=== PATIENT | female | born 1940 | race Caucasian/White ===

== ENCOUNTER → 2016-07-24 | Outpatient (CLI) | payer OTHER | LOC: FIMAGING 07:42 | PROVIDERS: ATTEND Physical Medicine & Rehabilitation Pain Medicine | DX: S32.10XD Unspecified fracture of sacrum, subsequent encounter for fracture with routine healing (principal); R60.9 Edema, unspecified; M51.36 Other intervertebral disc degeneration, lumbar region; M99.73 Connective tissue and disc stenosis of intervertebral foramina of lumbar region; M51.26 Other intervertebral disc displacement, lumbar region ==

== ENCOUNTER → 2016-10-06 | Outpatient (CLI) | payer OTHER | LOC: FIMAGING 09:09 | PROVIDERS: ATTEND Orthopaedic Surgery Orthopaedic Surgery of the Spine | DX: M51.36 Other intervertebral disc degeneration, lumbar region (principal); M43.16 Spondylolisthesis, lumbar region; M43.17 Spondylolisthesis, lumbosacral region ==

== ENCOUNTER 2016-10-13 09:01 | Observation (INO) | payer OTHER ==
--- NOTE | 2016-10-12 17:27 | GHP ---
[f rep st] PREOP HISTORY AND PHYSICAL DATE OF ADMISSION: 10/13/2016 HISTORY: The patient is a pleasant 76-year-old woman who underwent in 2005 an L3-L4-L5 laminectomy by myself with good results and full resolution of her symptoms. Now she is presenting with a 1 yea r history of severe left buttock pain radiating to the lateral thigh and lateral leg. 80% of her sy mptoms are referable to the left lower extremity. 20% is referable to low back pain. She also has paresthesias in the left foot. Symptoms are worse with ambulation and better with sitting. She den ies any loss of bowel or bladder control. On a visual analog scale of 1-10, her daily pain is an 8. The patient has tried epidural steroid injections, physical therapy, massage therapy, acupuncture and chiropractics. SOCIAL HISTORY: Negative for tobacco. Positive for occasional alcohol. She is a retired teacher. FAMILY HISTORY: Negative. PAST HISTORY: Hypercholesterolemia, hypothyroidism, Ralph's disease, osteoporosis and a history o f a perforated colon as well as hypertension. PAST SURGICAL HISTORY: L3 to L5 laminectomy. Two left ankle surgeries for fractures, left total kn ee arthroplasty, colon resection with ostomy and reconnection later. ALLERGIES TO MEDICATIONS: None. MEDICATIONS: Triamterene, hydrochlorothiazide, thyroxine, fenofibrate, hydrocortisone, fludrocortis one and omeprazole. REVIEW OF SYSTEMS: A 10-point review is negative for any pertinent positives. PHYSICAL EXAM: VITAL SIGNS: The patient is 5 feet 5 inches tall and weighs 135 pounds. Blood pres sure is 132/68. GENERAL: The patient is alert and oriented x3. CARDIAC: Regular rate and rhythm without detectable murmur, rub, or gallop. LUNGS: Clear to auscultation. NEUROLOGIC: Shows her g ait to be antalgic favoring the left lower extremity. Strength of bilateral lower extremities is 5/ 5 throughout except the left EHL which is 2/5. Light touch is diminished in the 1st through 5th toe s on the left. Achilles reflexes are absent bilaterally. All others are 1/4. Straight leg raising is negative x2. Lumbar spine shows a well-healed midline scar. It is nontender. She has good ran ge of motion of the lumbar spine. She is tender in the left sciatic notch. Toes are downgoing on B abinski exam, and she has no clonus bilaterally. RADIOGRAPHIC STUDIES: The patient has had a sacral plasty on the right at L5-S1. This was for stre ss fractures. She does have some methylmethacrylate extravasation on the right at L5-S1. She has a stable old compression fracture at L1, L2, L3. There is severe multilevel degenerative disk diseas e. She has moderate central stenosis L5-S1 and severe left L5-S1 foraminal stenosis. She also has asymptomatic L2-3 and L1-2 stenosis. IMPRESSION: 1. Left L5 radiculopathy with motor weakness. 2. Eleven years status post L3 to L5 laminectomy by myself. 3. Moderate central stenosis L5-S1 and severe foraminal stenosis L5-S1 left. PLAN: The patient will undergo an L5-S1 laminectomy with left-sided foraminotomy for stenosis. Pot ential risks, benefits, possible complications have been thoroughly discussed including but not limi lawrence to, dural tear with CSF leak, meningitis, nerve root injury, partial or complete paralysis, infe ction, need for further surgery, DVT, PE, pneumonia, stroke, heart attack, hemorrhage, blindness, an d . The patient's questions were answered thoroughly. She will be n.p.o. after midnight ayan gaffney. Copy requested to: Presurgery testing /[id number]/MODL
[~2016-10-13 09:01] MED LIST: BACITRACIN 50,000 UNITS/10 ML SYR IRR ONE; BUPIVACAINE 0.25% 30 ML SDV ONE; GENTAMICIN 80 MG/NACL 100 ML IV ONE; THROMBIN (BOVINE) 20,000 UNIT VIAL TP ONE; ceFAZolin 2 GM/DEXTROSE 100 ML IV ONE; methylPREDNISolone SOD SUCC 125 MG/2 ML VIAL ONE
[2016-10-13] MEDS ORDERED: LIDOCAINE 1% 5 ML SDV ONE (09:43)
[2016-10-13] MEDS ORDERED: CEFAZOLIN 2 GM/DEXTROSE/100 ML BAG IV ONE (10:49)
[2016-10-13] MEDS ORDERED: MIDAZOLAM 2 MG/2 ML VIAL ONE (11:12)
[2016-10-13] MEDS ORDERED: PROPOFOL/EMULSION 500 MG/50 ML BOTTLE IV ONE (11:15)
[2016-10-13] MEDS ORDERED: fentaNYL 100 MCG/2 ML INJ ONE ×4 (11:16→15:30)
[2016-10-13] MEDS ORDERED: BACITRACIN 50,000 UNITS/10 ML SYR IRR ONE (13:05)
[2016-10-13] MEDS ORDERED: BISACODYL 10 MG SUPP PR PRN (14:14)
[2016-10-13] MEDS ORDERED: LACTULOSE 20 GM/30 ML UDCUP PO PRN (14:14)
[2016-10-13] MEDS ORDERED: ONDANSETRON DISINTEGRATING 4 MG TAB PO PRN (14:14)
[2016-10-13] MEDS ORDERED: HYDROmorphONE/DILAUDID 1 MG/ML SYR IVP PRN (14:14)
[2016-10-13] MEDS ORDERED: MAGNESIUM HYDROXIDE 30 ML UDCUP PO PRN (14:14)
[2016-10-13] MEDS ORDERED: POLYETHYLENE GLYCOL 3350 17 GM PKT PO PRN (14:14)
[2016-10-13] MEDS ORDERED: DIAZEPAM 5 MG TAB PO PRN (14:14)
[2016-10-13] MEDS ORDERED: DIAZEPAM 10 MG/2 ML SYR IVP PRN (14:14)
[2016-10-13] MEDS ORDERED: ACETAMINOPHEN 325 MG TAB PO PRN (14:14)
[2016-10-13] MEDS ORDERED: diphenhydrAMINE 25 MG CAP PO PRN (14:14)
[2016-10-13] MEDS ORDERED: HYDROCODONE/APAP 10/325 TAB PO PRN (14:14)
[2016-10-13] MEDS ORDERED: ONDANSETRON 4 MG/2 ML VIAL IVP PRN (14:14)
--- NOTE | 2016-10-13 14:14 | POSTOPPROG ---
Post Op Note Date of Operation: 10/13/16 Surgeon: Jaja Glass Trouble Tracer: Choco Carr SA Anesthesiologist: Rachana Cantrell MD Anesthesia: GET(General Endotracheal) Pre-op Diagnosis: stenosis L5-S1 Post-op Diagnosis: same Indication: Bilat lower extremity pain Procedure: Rev. L5-S1 lami, Bilat L5-S1 kathya, R S1-2 kathya Findings: sev. Neuroforaminal stenosis Inf/Abcess present in the surg proc area at time of surgery?: No Depth: Deep Incisional (Fascial) EBL: 50 Cc Complications: None. No changes in neuromonitoring.
[2016-10-13] MEDS ORDERED: D5W 1/2 NS W/ 20 KCl/L 1,000 ML IV SCH (14:15)
[2016-10-13] MEDS ORDERED: ONDANSETRON 4 MG/2 ML VIAL ONE (14:26)
[2016-10-13] MEDS ORDERED: HYDROmorphONE/DILAUDID 1 MG/ML SYR ONE (14:50)
[2016-10-13] MEDS: OXYCODONE/APAP 5/325 TAB PO PRN ×2 (19:39→21:43)
[2016-10-13] MEDS: HYDROCORTISONE 10 MG TAB PO SCH (21:42)
[2016-10-13] MEDS: SENNOSIDES/DOCUSATE SODIUM TAB PO SCH (21:42)
[2016-10-14] MEDS: OXYCODONE/APAP 5/325 TAB PO PRN ×5 (02:16→15:48)
[2016-10-14] MEDS ORDERED: LEVOTHYROXINE 100 MCG TAB PO SCH (06:00)
[2016-10-14] MEDS: SENNOSIDES/DOCUSATE SODIUM TAB PO SCH (08:31)
[2016-10-14] MEDS: HYDROCORTISONE 10 MG TAB PO SCH (08:32)
[2016-10-14] MEDS: FLUCONAZOLE 100 MG TAB PO SCH ×2 (08:33→08:38)
[2016-10-14] MEDS ORDERED: PANTOPRAZOLE SODIUM 40 MG TAB PO SCH (09:00)
[2016-10-14] MEDS ORDERED: FLUDROCORTISONE ACETATE 0.1 MG TAB PO SCH (09:00)
[2016-10-14] MEDS ORDERED: FENOFIBRATE 48 MG TAB PO SCH (09:00)
[2016-10-14] MEDS ORDERED: TRIAMTERENE/HCTZ 37.5/25 1 EACH CAP PO SCH (09:00)
--- NOTE | 2016-10-14 17:02 | SOAPPROG ---
SOAP Progress Note Assessment/Plan: Assessment: post op day 1, s/p Rev L5-S1 lami, Bilat L5-S1 kathya, and R S1-2 kathya. Pt doing well and wants to go home. Plan: 10/14/16 17:00 D/C to home. Will need home O.T. and P.T. Subjective: Pt states bilat leg pain is gone. Objective: Vital Signs Temp Pulse Resp BP Pulse Ox 37.3 C 88 14 145/68 H 93 10/14/16 12:41 10/14/16 12:41 10/14/16 12:41 10/14/16 12:41 10/14/16 12:41 10/13/16 10/14/16 10/15/16 05:59 05:59 05:59 Intake Total 3320 Output Total 605 Balance 2715 BLE motor 5/5 except left EHL 0/5 (old injury). Debra's negative x 2. Dressing changed by RN ICD10 Worksheet Patient Problems: Problems Problem Status Onset Colitis, acute Acute Perforated abdominal viscus Acute Peritonitis Acute Severe sepsis Acute
[2016-10-14 17:08] VITALS: BP 149/63; PULSE 94; RESP 16; TEMP 98.8; O2SAT 91
--- NOTE | 2016-10-14 17:09 | PDIAF ---
- Diagnosis Code Status: Full Code - Medication Management Discharge Medications: Medications to Continue on Transfer Cholecalciferol Vit D3 [Vitamin D3 (*)] 1,000 units PO DAILY@18 08/06/15 [Last Taken 1 Week Ago] Fenofibrate [Tricor] 96 mg PO DAILY 08/06/15 [Last Taken 10/12/16 08:00] Fludrocortisone Acetate [Florinef] 0.1 mg PO DAILY 08/06/15 [Last Taken 1 Week Ago] Hydrocortisone [Cortef 10 mg (*)] 10 mg PO BID 08/06/15 [Last Taken 10/12/16 20: 00] Levothyroxine [Synthroid 100 mcg (*)] 100 mcg PO DAILY06 08/06/15 [Last Taken 08:00] Triamterene/Hydrochlorothiazid [Triamterene-Hctz 37.5-25 mg Cp] 1 each PO DAILY 08/06/15 [Last Taken 10/12/16 08:00] Omeprazole [Prilosec 20 mg] 20 mg PO DAILY 01/15/16 [Last Taken 10/12/16 08:00] Fluconazole [Diflucan (*)] 200 mg PO DAILY 09/29/16 [Last Taken 10/12/16 08:00] Diazepam [Valium 5 MG (*)] 5 mg PO Q8 PRN #30 tab 10/14/16 [Last Taken Unknown] Fenofibrate [Tricor] 96 mg PO DAILY #0 tab 10/14/16 [Last Taken Unknown] Fluconazole [Diflucan (*)] 200 mg PO DAILY #0 tab 10/14/16 [Last Taken Unknown] Fludrocortisone Acetate [Florinef] 0.1 mg PO DAILY #0 tab 10/14/16 [Last Taken Unknown] Hydrocortisone [Cortef 10 mg (*)] 10 mg PO BID #0 tab 10/14/16 [Last Taken Unknown] Levothyroxine [Synthroid 100 mcg (*)] 100 mcg PO DAILY06 #0 tab 10/14/16 [Last Taken Unknown] Pantoprazole Sodium [Protonix 40mg (*)] 40 mg PO DAILY #0 tab 10/14/16 [Last Taken Unknown] oxyCODONE/APAP 5/325 [Percocet 5/325 (*)] 1 - 2 tab PO Q4HRS PRN #30 tab [Last Taken Unknown] Discharge Medications: Refer to the Discharge Home Medication list for PRN reason. PICC Care - Routine: N/A - Orders Services needed: Physical Therapy, Occupational Therapy Diet Recommendation: no restrictions on diet Diet Texture: Regular Texture Diet Carl Stockings Discontinue Date: 3-4 days Activity/Weight Bearing Restrictions: No bending, lifting, twisting. Pt to wear back brace at all times except for showers. - Follow Up Care Current Providers and Referrals: Rosalind Aviles MD [Primary Care Provider] -
--- NOTE | 2016-10-14 21:24 | GDS ---
[f rep st] DISCHARGE SUMMARY HOSPITAL COURSE: This is a pleasant 76-year-old woman well known to my practice. Eleven years ago she underwent an L3-L5 laminectomy by myself with good results. However, over the last year, she carver s developed increasing severe left lower extremity pain and more recently right lower extremity pain . She was admitted to the hospital and underwent a general anesthetic. Also intraoperative neural monitoring was performed. She underwent an L5-S1 revision laminectomy, bilateral L5-S1 foraminotomy , and right S1-S2 laminal foraminotomy. There were no complications intraoperatively. Postoperatively, patient states that her bilateral lower extremity pain was markedly improved. Her only complaint was back pain in the incision area. She was on IV antibiotics. Postoperatively, she had no issues with nausea or vomiting, but did have some reflex, which is typical for her. Patient was seen in PT and OT, and was recommended to have a home health consultation and visits. Patient is being discharged to home in satisfactory condition. She has postoperative prescriptions for Percocet, Valium, and Keflex. She also has a postoperative appointment already scheduled in my office. She understands she needs to not do any bending, lifting, twisting. She also needs to have a daily dry dressing change, which her feels comfortable doing. Overall, she has done exce edingly well and will follow up with me in 2 weeks. /[id number]/MODL
== END 2016-10-14 17:50 | disposition home health service (06) ==
LOC: INTOOBSV 09:01 → F3N 09:01
PROVIDERS: ADMIT Orthopaedic Surgery Orthopaedic Surgery of the Spine; ATTEND Orthopaedic Surgery Orthopaedic Surgery of the Spine
PROC: 0SB30ZZ Excision of Lumbosacral Joint, Open Approach (ICD-10-PCS; principal; 2016-10-13 11:15)
PROC: 00NY0ZZ Release Lumbar Spinal Cord, Open Approach (ICD-10-PCS; principal; 2016-10-13 11:15)
DX: M48.07 Spinal stenosis, lumbosacral region (principal); M54.42 Lumbago with sciatica, left side; M54.16 Radiculopathy, lumbar region; E03.9 Hypothyroidism, unspecified; E78.5 Hyperlipidemia, unspecified; M81.0 Age-related osteoporosis without current pathological fracture; I10 Essential (primary) hypertension; E27.1 Primary adrenocortical insufficiency; Z96.652 Presence of left artificial knee joint
CPT/HCPCS: 63047; 76001; 97116; 97161; 97166; G8978; G8979; G8987; G8988; J0690; J1170; J1580; J2250; J2405; J2704; J3010

== ENCOUNTER 2016-11-04 13:21 | Inpatient (IN) | payer OTHER ==
--- NOTE | 2016-11-04 13:25 | GHP ---
[f rep st] PREOP HISTORY AND PHYSICAL HISTORY OF PRESENT ILLNESS: The patient is a pleasant 76-year-old woman, who is now 3 weeks status post a revision L5-S1 laminectomy, bilateral L5-S1 foraminotomies, right S1-S2 foraminotomy for stenosis. Eleven years ago, she had undergone an L3-L5 laminectomy by myself with good results. This most recent surgery went well, and she was discharged to home a couple of days postoperatively. She called yesterday to my office stating she was having increased leg pain, and therefore, she was brought in today to reevaluate her. She does mention she has had chills for the last 48 hours. She has had some loss of appetite also. No emesis and no diarrhea. She feels that her left lower extremity pain is 30% better than before surgery, but she still has left buttock and thigh pain, but not below the knee. Upon exam in my office today, she has an obvious subcutaneous purulence of the proximal aspect of her lumbar wound and will require an incision irrigation and debridement. She has been n.p.o. since 9 a.m. The patient denies any loss of bowel or bladder control. FAMILY HISTORY: Negative. SOCIAL HISTORY: Negative for tobacco, and positive for social use of alcohol. She is a retired teacher. PAST MEDICAL HISTORY: Gastroesophageal reflux disease, osteoporosis, hypercholesterolemia, Ralph's disease, and hypothyroidism. PAST SURGICAL HISTORY: Significant for a perforated colon surgery and then reattachment, L3-L5 laminectomy 11 years ago, and then the recent revision L5- S1 laminectomy, bilateral L5-S1 foraminotomies, and right S1-S2 foraminotomies. She has also had 2 left ankle surgeries for fractures, and a left total knee arthroplasty. ALLERGIES: To medications: None. MEDICATIONS: Triamterene/hydrochlorothiazide, Percocet, thyroxine, fenofibrate , hydrocortisone 10 mg b.i.d., fludrocortisone 1 tablet per day, Valium 5 mg 1 p.o. q.h.s. p.r.n., omeprazole and naproxen. PHYSICAL EXAM: GENERAL: The patient is a well developed, well nourished, very pleasant woman to interact with. VITAL SIGNS: Temperature is 96.6 degrees. CARDIAC: Reveals regular rate and rhythm without detectable murmur, rub or gallop. LUNGS: Clear to auscultation. ABDOMEN: Benign, with good bowel sounds throughout. NEUROLOGIC: Shows strength of bilateral lower extremities to be 5/5 throughout. Light touch is intact. Her lumbar wound has some mild peripheral erythema. There is about a 2-3 mm opening at the proximal end of the lumbar wound, with obvious gross purulence, measuring about 20 cc, and it is tender to palpation. IMPRESSION: 1. Three weeks status post revision L5-S1 laminectomy, bilateral L5-S1 foraminotomies, right S1-S2 foraminotomy. 2. Postoperative lumbar wound infection. PLAN: I explained to the patient the findings, and that she clearly has an infection. Her [place]'s disease and chronic steroid use, in addition to revision surgery are her risk factors for the infection. We will order blood cultures, have her be n.p.o., order labs including CBC and sedimentation rate, C -reactive protein, and then have infectious disease consultants see the patient tomorrow. She will be brought to the operating room today for an incision irrigation and debridement. Potential risks, benefits, possible complications have been thoroughly discussed with the patient, including, but not limited to dural tear with CSF leak, meningitis, nerve root injury, partial or complete paralysis, infection, need for further surgery, DVT, PE, pneumonia, stroke, heart attack, hemorrhage, blindness, and . /[id number]/MODL MTDD
[2016-11-04] MEDS ORDERED: BACITRACIN 50,000 UNITS/10 ML SYR IRR ONE (13:46)
[2016-11-04] MEDS ORDERED: POLYMYXIN B SULFATE 500,000 UNIT/10 ML SYR IRR ONE (13:46)
[2016-11-04] MEDS ORDERED: BUPIVACAINE 0.25% 30 ML SDV ONE (13:46)
[2016-11-04] MEDS ORDERED: THROMBIN (BOVINE) 20,000 UNIT VIAL TP ONE (13:46)
[2016-11-04] MEDS ORDERED: LR 1,000 ML IV ONE (15:36)
[2016-11-04] MEDS ORDERED: LIDOCAINE 1% 5 ML SDV ID PRN (15:36)
[2016-11-04 15:54] LABS: % IMMATURE GRANULYOCYTES 0.6 % (0.0-1.1); ABSOLUTE IMMATURE GRANULOCYTES 0.11 10^3/uL (0.00-0.10); ABSOLUTE NRBC COUNT 0.02 10^3/uL (0-0.01); ADD DIFF? NO; ADD MORPH? NO; ADD SCAN? NO; ATYPICAL LYMPHOCYTE FLAG 0 (0-99); FRAGMENT RBC FLAG 0 (0-99); HEMATOCRIT 33.1 % (38.0-47.0); HEMOGLOBIN 11.1 g/dL (12.6-16.3); LEFT SHIFT FLG 20 (0-99); LIPEMIA HEMOLYSIS FLAG 80 (0-99); MEAN CELL HEMOGLOBIN 29.4 pg (27.9-34.1); MEAN CELL HEMOGLOBIN CONCENTR. 33.5 g/dL (32.4-36.7); MEAN CELL VOLUME 87.6 fL (81.5-99.8); MEAN PLATELET VOLUME 11.3 fL (8.7-11.7); NRBC-AUTO% 0.1 % (0.0-0.2); PLATELET CLUMPS FLAG 20 (0-99); PLATELET COUNT 236 10^3/uL (150-400); RED BLOOD CELL COUNT 3.78 10^6/uL (4.18-5.33); RED CELL DISTRIBUTION WIDTH 13.3 % (11.5-15.2)
[2016-11-04] MEDS ORDERED: BISACODYL 10 MG SUPP PR PRN (15:56)
[2016-11-04] MEDS ORDERED: MAGNESIUM HYDROXIDE 30 ML UDCUP PO PRN (15:56)
[2016-11-04] MEDS ORDERED: LACTULOSE 20 GM/30 ML UDCUP PO PRN (15:56)
[2016-11-04] MEDS ORDERED: ACETAMINOPHEN 325 MG TAB PO PRN (16:00)
--- NOTE | 2016-11-04 16:04 | PDANEPAE ---
ANE History of Present Illness l5 infection s/p lami ANE Past Medical History - Cardiovascular History Hx Hypertension: Yes Hx Arrhythmias: No Hx Chest Pain: No Hx Coronary Artery / Peripheral Vascular Disease: No Hx CHF / Valvular Disease: No Hx Palpitations: No - Pulmonary History Hx COPD: No Hx Asthma/Reactive Airway Disease: No Hx Recent Upper Respiratory Infection: No Hx Oxygen in Use at Home: No - Neurologic History Hx Cerebrovascular Accident: No Hx Seizures: No Hx Dementia: No - Endocrine History Hx Diabetes: No - Renal History Hx Renal Disorders: No - Liver History Hx Hepatic Disorders: No - Neurological & Psychiatric Hx Hx Neurological and Psychiatric Disorders: No - Cancer History Hx Cancer: No - Congenital Disorder History Hx Congenital Disorders: No - GI History Hx Gastrointestinal Disorders: Yes - Chronic Pain History Chronic Pain: Yes ANE Review of Systems - Exercise capacity Exercise capacity: >=4 METS - Systems Constitutional: Reports: no symptoms Cardiac: Reports: no symptoms Respiratory: Reports: no symptoms Neurological: Reports: no symptoms ANE Patient History - Allergies Allergies/Adverse Reactions: No Known Allergies Allergy (Verified 10/14/16 02:18) - Home Medications Home Medications: Acetaminophen [Tylenol 325mg (*)] 325 mg PO BID PRN 11/04/16 [Last Taken ] Diazepam [Valium 5 MG (*)] 5 mg PO Q8H PRN 11/04/16 [Last Taken 11/03/16] Fenofibrate [Tricor 48 MG (RX)] 96 mg PO DAILY 11/04/16 [Last Taken 11/04/16] Fludrocortisone Acetate [Florinef 0.1 MG (RX)] 0.1 mg PO DAILY 11/04/16 [Last Taken Unknown] Herbals/Supplements -Info Only 1 ea PO DAILY 11/04/16 [Last Taken 11/03/16] Hydrocortisone [Cortef 10 mg (*)] 10 mg PO BID 11/04/16 [Last Taken 11/04/16 1 tab] Levothyroxine [Synthroid 100 mcg (*)] 100 mcg PO DAILY06 11/04/16 [Last Taken ] Naproxen Sodium [Aleve 220 MG (*)] 220 mg PO BID PRN 11/04/16 [Last Taken ] Omeprazole 20 mg PO DAILY 11/04/16 [Last Taken 11/04/16] Triamterene/Hydrochlorothiazid [Triamterene-Hctz 37.5-25 mg Tb] 1 each PO DAILY 11/04/16 [Last Taken 11/04/16] oxyCODONE/APAP 5/325 [Percocet 5/325 (*)] 1 - 2 tab PO Q46H 11/04/16 [Last Taken 11/04/16] - NPO status NPO Since - Liquids (Date): 11/04/16 NPO Since - Liquids (Time): 09:00 NPO Since - Solids (Date): 11/04/16 NPO Since - Solids (Time): 09:00 - Smoking Hx Smoking Status: Never smoked - Family Anes Hx Family Hx Anesthesia Complications: none ANE Labs/Vital Signs - Labs Result Diagrams: 11/04/16 15:45 11/04/16 15:45 - Vital Signs Blood Pressure: 125/59 Heart Rate: 78 Respiratory Rate: 15 O2 Sat (%): 99 Height: 167.64 cm Weight: 62.142 kg ANE Physical Exam - Airway Mallampati Score: Class 2 Mouth exam: normal dental/mouth exam - Pulmonary Pulmonary: no respiratory distress - Cardiovascular Cardiovascular: regular rate and rhythym - ASA Status ASA Status: II, E
[2016-11-04] MEDS ORDERED: fentaNYL 100 MCG/2 ML INJ ONE ×3 (16:18→17:51)
[2016-11-04] MEDS ORDERED: ROCURONIUM 50 MG/5 ML VIAL ONE (16:18)
[2016-11-04] MEDS ORDERED: PROPOFOL 200 MG/20 ML VIAL ONE (16:18)
[2016-11-04] MEDS ORDERED: LIDOCAINE 2% 5 ML SDV ONE (16:18)
[2016-11-04 16:20] LABS: ANION GAP 11 mEq/L (8-16); CALCIUM 9.5 mg/dL (8.5-10.4); CARBON DIOXIDE 19 mEq/l (22-31); CHLORIDE 103 mEq/L (97-110); GLOMERULAR FILTRATION RATE 54; GLUCOSE 92 mg/dL (70-100); POTASSIUM 4.4 mEq/L (3.5-5.2); SODIUM 133 mEq/L (134-144)
[2016-11-04 16:22] LABS: SEDIMENTATION RATE 65 MM/HR (0-30)
[2016-11-04] MEDS ORDERED: HYDROCORTISONE 100 MG/2 ML VIAL IVP ONE (16:35)
[2016-11-04 16:39] LABS: C-REACTIVE PROTEIN 198.5 mg/L (<10.0)
[2016-11-04] MEDS ORDERED: HYDROCORTISONE 100 MG/2 ML VIAL ONE (16:39)
[2016-11-04] MEDS ORDERED: ceFAZolin 1 GM VIAL ONE ×2 (16:40)
[2016-11-04] MEDS ORDERED: ONDANSETRON 4 MG/2 ML VIAL IVP PRN (16:57)
[2016-11-04] MEDS ORDERED: ALBUTEROL 3 ML DEYVIAL IH PRN (16:57)
[2016-11-04] MEDS ORDERED: NALOXONE HCL 0.4 MG/ML INJ IVP PRN (16:57)
[2016-11-04] MEDS ORDERED: ONDANSETRON 4 MG/2 ML VIAL ONE (17:10)
[2016-11-04] MEDS ORDERED: SUGAMMADEX SODIUM 200 MG/2 ML VIAL IVP ONE (17:11)
--- NOTE | 2016-11-04 17:43 | POSTOPPROG ---
Post Op Note Date of Operation: 11/04/16 Surgeon: Jaja Glass Chemical Applicator: Choco Carr SA Anesthesiologist: MD Sergei Anesthesia: GET(General Endotracheal) Pre-op Diagnosis: lumbar wound infection s/p rev. lami Post-op Diagnosis: same Indication: purulence, chills Procedure: Lumbar wound I and D, drain placement Findings: 20 CC purulence superficial and deep. Inf/Abcess present in the surg proc area at time of surgery?: Yes Depth: Deep Incisional (Fascial) EBL: 50 cc Complications: None. Drains: Jayant Vo
--- NOTE | 2016-11-04 17:45 | POSTANESTH ---
Post Anesthetic Evaluation Cardiovascular Status: Normal, Stable Respiratory Status: Normal, Stable Level of Consciousness/Mental Status: Can Participate in Eval Pain Control: Adequate, Prn Tx Ordered Nausea/Vomiting Control: Adequate, Prn Tx Ordered Complications Possibly Related to Anesthesia: None Noted
[2016-11-04] MEDS: fentaNYL 100 MCG/2 ML INJ IVP PRN ×2 (17:53→17:57)
[2016-11-04] MEDS ORDERED: HYDROmorphONE/DILAUDID 2 MG/ML INJ ONE (18:09)
[2016-11-04] MEDS: HYDROmorphONE/DILAUDID 1 MG/ML SYR IVP PRN ×3 (18:12→18:36)
[2016-11-04] MEDS: D5W 1/2 NS 1,000 ML IV SCH (20:32)
[2016-11-04] MEDS: HYDROCORTISONE 10 MG TAB PO SCH (20:33)
[2016-11-04] MEDS: morphINE SR 15 MG TAB PO SCH (20:33)
[2016-11-04] MEDS: SENNOSIDES/DOCUSATE SODIUM TAB PO SCH (20:33)
[2016-11-04] MEDS: DIAZEPAM 5 MG TAB PO PRN (21:58)
[2016-11-04] MEDS: OXYCODONE/APAP 5/325 TAB PO PRN (21:58)
[2016-11-05] MEDS: OXYCODONE/APAP 5/325 TAB PO PRN ×3 (02:34→16:12)
[2016-11-05] MEDS: LEVOTHYROXINE 100 MCG TAB PO SCH (05:34)
--- NOTE | 2016-11-05 06:51 | GOP ---
[f rep st] OPERATIVE REPORT DATE OF OPERATION: 11/04/2016 SURGEON: Jaja Degroot MD SOUND EFFECTS MANAGER: Orlando Carr SA. ANESTHESIA: General endotracheal intubation. ANESTHESIOLOGIST: Dr. Mai. PREOPERATIVE DIAGNOSIS: 1. Three weeks status post revision L5-S1 laminectomy, bilateral L5-S1 foraminotomies, right S1-S2 foraminotomy. 2. Postoperative lumbar wound infection. POSTOPERATIVE DIAGNOSIS: 1. Three weeks status post revision L5-S1 laminectomy, bilateral L5-S1 foraminotomies, right S1-S2 foraminotomy. 2. Postoperative lumbar wound infection. PROCEDURE PERFORMED: Incision, irrigation, debridement lumbar wound infection. FINDINGS: Superficial and deep lumbar wound infection with approximately 20 cc of purulence. No ev idence of epidural abscess and no evidence of bone involvement. It seems as though this infection w as caught quite early in my opinion. A superficial set of cultures, deep lumbar wound cultures and tissue for TB were sent. It should be mentioned patient received 2 g of Ancef after cultures were o btained. ESTIMATED BLOOD LOSS: 50 cc. INDICATIONS: The patient is a pleasant 76-year-old woman well known to my practice. She is 3 weeks status post a revision lumbar decompression L5-S1 on the left and L5-S2 on the right for stenosis. The patient called my office yesterday with concerns of increasing leg pain. She was seen today in the office. She mentioned she has had chills for 48 hours and loss of appetite. On exam, her lumb ar wound showed some purulence from the proximal aspect of the wound and diffuse erythema and tender ness to palpation. Due to the purulence expressed, she was recommended to undergo surgery urgently. She concurred. Potential risks, benefits, possible complications were thoroughly discussed with t he patient including, but not limited to, dural tear with CSF leak, meningitis, nerve root injury, p artial or complete paralysis, lack of improvement in symptomatology, need for further surgery, sepsi s, DVT, PE, pneumonia, stroke, heart attack, hemorrhage, blindness, and . DESCRIPTION OF PROCEDURE: After obtaining both written and verbal consent from the patient, she was brought to the operating room where she underwent general endotracheal intubation. The patient was rolled to the prone position on the [place] table. All 4 extremities were padded well. The face a nd eyes were padded per the anesthesiologist. No x-ray was needed for localization as the lumbar wo und, which was infected, was quite obvious. A timeout was performed with the entire operating room team, confirming patient's name, date of , planned surgical procedure, antibiotics given which were none, and allergies to medications. After a sterile prep and drape, a midline posterior longitudinal incision was made through the previ ous scar which dehisced immediately, and there was purulence upon opening it. This was cultured imm ediately using aerobic and anaerobic cultures sent for the aforementioned, in addition to fungus and a stat Gram stain. The previous sutures were removed from the subcutaneous layer. Cerebellars wer e placed, and the deep fascial layer was opened up. Another, approximate 10 cc of purulence, came d irectly from about the L5 level and deep to the fascial layer. This was cultured as well and sent a s deep lumbar wound cultures. A piece of soft tissue was then removed with maximum and se nt as tissue for TB culturing. The wound was thoroughly explored. It seems as though that the infe ction was quite early and caught it in its early stage as the surrounding tissues did not have much necrosis. The little that was necrosed was removed with a rongeur, and Bovie cautery was used for h emostasis. The previous laminotomy sites were dressed and thoroughly irrigated. Covering the dura, however, 3 L of normal saline mixed with bacitracin and polymyxin was irrigated and pulse lavaged w ithin the wound. The wound then appeared pink and moist throughout. The dura was inspected and in good condition, and there did not seem to be any epidural abscess. Also it did not seem as though t here was any bone involvement. Nonetheless, the infection was both superficial and deep to the fasc ial layer. In total, there was approximately 20 cc of purulence. A 10 flat CHULA drain was placed diamante p to the fascial layer and sewn in with a 2-0 nylon suture. The deep fascial layer was closed in a loose fashion using a #1 Vicryl in an interrupted fashion, followed by a 2-0 Vicryl in subcutaneous layer and 2-0 nylon in the skin layer. A sterile dressing was applied. The patient was then rolled to the supine position. She was extubated in the operating room and brought to the recovery room i n satisfactory condition. COMPLICATIONS: None. POSTOPERATIVE PLAN: Close neurologic observation, close airway observation, PT/OT, pain control and Infectious Disease consultation. I will keep her on IV Ancef until Infectious Disease consultants have seen the patient and make recommendations with changes. /[id number]/MODL
[2016-11-05] MEDS: TRIAMTERENE/HCTZ 37.5/25 1 EACH TAB PO SCH (08:22)
[2016-11-05] MEDS: HYDROCORTISONE 10 MG TAB PO SCH ×2 (08:23→20:48)
[2016-11-05] MEDS: SENNOSIDES/DOCUSATE SODIUM TAB PO SCH ×2 (08:23→20:47)
[2016-11-05] MEDS: PANTOPRAZOLE SODIUM 40 MG TAB PO SCH (08:23)
[2016-11-05] MEDS: FENOFIBRATE 48 MG TAB PO SCH (08:23)
[2016-11-05] MEDS: FLUDROCORTISONE ACETATE 0.1 MG TAB PO SCH (08:23)
[2016-11-05] MEDS: morphINE SR 15 MG TAB PO SCH ×2 (08:23→20:48)
[2016-11-05] MEDS ORDERED: ALTEPLASE 2 MG VIAL IVP PRN (11:28)
[2016-11-05] MEDS ORDERED: VANCOMYCIN 750 MG in D5W 150 ML IV SCH (12:00)
--- NOTE | 2016-11-05 15:50 | SOAPPROG ---
SOAP Progress Note Assessment/Plan: Assessment: post op day 1 s/p I and D lumbar wound infection. Pt feeling improved today and LLE pain improved. Plan: PT , OT, I.D. consult, awaiting cxs and sensistivities. Awaiting blood cultures also. Will need iv abx and PICC. 11/05/16 15:46 Subjective: Pt states she's feeling better than yesterday. No nausea, vomitting, or chills. Objective: Vital Signs Temp Pulse Resp BP Pulse Ox 36.6 C 78 16 120/56 L 90 L 11/05/16 15:32 11/05/16 15:32 11/05/16 15:32 11/05/16 15:32 11/05/16 15:32 Microbiology 11/04/16 16:52 Gram Stain - Final Back - Eswab 11/04/16 16:56 Mycobacterial Smear (RADHA) - Final Back - Tissue 11/04/16 16:51 Gram Stain - Final Back - Eswab Laboratory Results 11/04/16 15:45 11/04/16 15:45 11/04/16 11/05/16 11/06/16 05:59 05:59 05:59 Intake Total 2383 Output Total 50 Balance 2333 BLE motor 5/5 except Left EHL 0/5(old). Debra's negative x 2. Lumbar wound improved. Drain functioning properly. No purulence. ICD10 Worksheet Patient Problems: Problems Problem Status Onset Colitis, acute Acute Perforated abdominal viscus Acute Peritonitis Acute Severe sepsis Acute
[2016-11-05] MEDS: POLYETHYLENE GLYCOL 3350 17 GM PKT PO PRN ×2 (16:12→20:55)
[2016-11-05 19:13] LABS: BILIRUBIN,TOTAL 0.1 mg/dL (0.1-1.4); BILIRUBIN-UNCONJUGATED 0.1 mg/dL (0.0-1.1); TOTAL PROTEIN 5.4 g/dL (6.3-8.2)
--- NOTE | 2016-11-05 19:29 | GCON ---
[f rep st] CONSULTATION INFECTIOUS DISEASE DATE OF CONSULTATION: 11/05/2016 REFERRING PHYSICIAN: Jaja Degroot MD HPI: This is a 76-year-old woman, well known to me, with past severe intraabdominal infection related to a perforated sigmoid colon, requiring exploratory laparotomy and Aristides procedure in October of 2015, with associated anaerobic bacteremia, and polymicrobial peritonitis, and intraabdominal abscess. The patient received antibiotic therapy through 11/2015, and in the interim has had her Aristides pouch reversed. She has been doing well in her usual state of health, and subsequently underwent an L5-S1 laminectomy with bilateral L5-S1 foraminectomy, and a right-sided S1-S2 foraminotomy on 2016. Postoperatively she was having gradual improvement in her back pain, but on 11/03/2016 the patient developed chills and wound drainage (but no increased back pain), and was subsequently seen by Dr. Degroot on the following day, and was found to have a wound infection. She was taken to the operating room that same day in the evening, and underwent debridement of the wound, and was found to have a deep wound infection down to the fascial layer. Bone and epidural layer were not involved. Cultures were obtained, and Gram stain of the superficial culture showed GPCs on the Gram stain. The patient was subsequently admitted to the hospital and started on cefazolin. This morning she is doing well, but she is somewhat tearful regarding her infection. She denies any fevers today or worsening back pain. PAST MEDICAL HISTORY: Ralph's disease, Clostridium bacteremia, peritonitis as per HPI, hyperlipidemia, hypothyroidism. PAST SURGICAL HISTORY: Colostomy, exploratory laparotomy, sigmoidectomy, and reversal of Aristides pouch, as well as prior back surgeries other than the one listed above. MEDICATIONS: Cefazolin 1 g IV q.8, Tylenol, Valium, Tricor, Florinef, hydrocortisone, lactulose, Protonix, MiraLAX, senna, Maxzide 25. ALLERGIES: NKDA. SOCIAL HISTORY: The patient is . Drinks alcohol occasionally. Never had tobacco. FAMILY HISTORY: Reviewed and noncontributory. REVIEW OF SYSTEMS: A complete 10-point review of systems was performed, and is negative except as mentioned in HPI. PHYSICAL EXAM: VITAL SIGNS: Blood pressure 103/60, heart rate 78, respiratory rate 18, saturation 96% on room air, temperature 36.8. She has been afebrile throughout her hospital course. GENERAL: This is a very pleasant woman lying in bed, in no acute distress. HEENT: Pupils are reactive bilaterally. Oropharynx is moist. No obvious dental caries. NECK: Supple. CARDIOVASCULAR : Regular rate and rhythm with 2/6 systolic murmur. CHEST: Clear to auscultation bilaterally. ABDOMEN: Soft, nontender. Bowel sounds are present. EXTREMITIES: No clubbing, cyanosis, or edema. BACK: Revealed the dressing in place with a CHULA drain with serosanguineous drainage. Wound dressing was not disturbed. NEURO: Lower extremity leg strength was intact. No lower extremity edema. SKIN: Without rashes. LABORATORY: White count 17,000, hematocrit 33, platelets 236, neutrophils 85%, lymphocytes 5%, ESR 65, CRP 198, creatinine 1.0. LFTs are pending. Blood cultures are pending. Microbiology shows Staph aureus, with a negative PBP test consistent with MSSA. ASSESSMENT: 76-year-old woman who underwent lumbar procedure at the end of September , now with postsurgical deep wound infection down to the fascial layer without clear involvement of the bone or epidural layer. Corresponding to this infection includes leukocytosis and an elevated CRP. Initially, when I examined the patient, cultures were not back, and I placed the patient on vancomycin, but was subsequently transitioned back to cefazolin 1 g IV q.8 based on additional laboratory information that isolate is MSSA. Cefazolin 1 g IV Q 8 is likely appropriate dose for deep wound infection in this 76-year-old woman. PLAN: 1. Place PICC line. 2. We will administer either cefazolin 1 g IV Q 8 vs. 3 g IV continuous infusion or ceftriaxone 2 g IV daily once daily, depending on insurance coverage - but suspect ceftriaxone will be most practical. Because of the proximity to the bone and fascial layer, would recommend 4-6 weeks of IV antibiotics to assure clearance of infection. In the past the patient had to go to infusion center due to non-homebound status. In addition, will ask case management to look into out of pocket cost for getting home IV ceftriaxone once daily to allow the patient to travel to a approximately 10 days from now. We will discuss with wrapper caser. 3. We will follow daily labs to assess improvement of white count. 4. Add LFTs onto labs due to likely chronic cephalosporin therapy. Time was 65 minutes, greater than 50% of the time spent with education and counseling regarding IV antibiotics and wound infection, and reassurances that this infection can be cured. Reviewed the risks and benefits of PICC line and IV antibiotic therapy. We will continue to follow on a daily basis. /[id number]/MODL MTDD
[2016-11-05] MEDS: DIAZEPAM 5 MG TAB PO PRN (20:56)
[2016-11-06] MEDS ORDERED: VANCOMYCIN 750 MG in D5W 150 ML IV SCH (02:30)
[2016-11-06] MEDS: PANTOPRAZOLE SODIUM 40 MG TAB PO SCH ×2 (03:30→08:36)
[2016-11-06] MEDS ORDERED: CALCIUM CARBONATE 500 MG CHEWABLE TAB PO PRN (06:26)
[2016-11-06] MEDS: LEVOTHYROXINE 100 MCG TAB PO SCH (06:30)
[2016-11-06] MEDS: D5W 1/2 NS 1,000 ML IV SCH (06:30)
[2016-11-06] MEDS: HYDROCORTISONE 10 MG TAB PO SCH ×2 (08:36→21:24)
[2016-11-06] MEDS: FLUDROCORTISONE ACETATE 0.1 MG TAB PO SCH (08:36)
[2016-11-06] MEDS: FENOFIBRATE 48 MG TAB PO SCH (08:36)
[2016-11-06] MEDS: morphINE SR 15 MG TAB PO SCH ×2 (08:36→21:24)
[2016-11-06] MEDS: SENNOSIDES/DOCUSATE SODIUM TAB PO SCH ×2 (08:36→21:24)
[2016-11-06] MEDS: TRIAMTERENE/HCTZ 37.5/25 1 EACH TAB PO SCH (08:55)
--- NOTE | 2016-11-06 16:09 | SOAPPROG ---
SOAP Progress Note Assessment/Plan: Assessment: post op day 1 s/p I and D lumbar wound infection. Pt feeling improved today and LLE pain improved. Plan: PT , OT, I.D. consult, awaiting cxs and sensistivities. Awaiting blood cultures also. Will need iv abx and PICC. 11/05/16 15:46 11/06/16 16:05 post op day 2, s/p I and D lumbar wound infection. Cxs showing Staph Aureus MSSA. Pt has PICC line. Will d/c pt to home tomorrow if she continues to do well. Subjective: Pt states her leg pain is much better. "not much of an appetite". Objective: Vital Signs Temp Pulse Resp BP Pulse Ox 36.7 C 64 16 115/64 92 11/06/16 11:59 11/06/16 11:59 11/06/16 11:59 11/06/16 11:59 11/06/16 11:59 Microbiology 11/04/16 16:52 Gram Stain - Final Back - Eswab 11/04/16 16:51 Gram Stain - Final Back - Eswab 11/04/16 16:56 Mycobacterial Smear (RADHA) - Final Back - Tissue Laboratory Results 11/04/16 15:45 11/04/16 15:45 11/05/16 11/06/16 11/07/16 05:59 05:59 05:59 Intake Total 2383 800 Output Total 50 30 Balance 2333 770 Lumbar wound with minimal serous drainage. No purulence. Drain removed without difficulty. ICD10 Worksheet Patient Problems: Problems Problem Status Onset Colitis, acute Acute Perforated abdominal viscus Acute Peritonitis Acute Severe sepsis Acute
[2016-11-06] MEDS ORDERED: ALTEPLASE 2 MG VIAL IVP PRN (16:23)
[2016-11-06] MEDS ORDERED: ONDANSETRON 4 MG/2 ML VIAL IVP PRN (16:23)
[2016-11-06] MEDS ORDERED: ACETAMINOPHEN 325 MG TAB PO PRN (16:23)
--- NOTE | 2016-11-06 17:40 | PCMIDPN ---
Assessment/Plan: Assessment: Deep lumbar wound infection secondary to MSSA. Patient is currently on cefazolin. She will be discharged after tomorrow morning's dose. She will continue on daily infusions on with ceftriaxone 1 g daily. Duration is to be 4 weeks from surgery. Plan: 1. Discontinue cefazolin after tonight's doses. 2. Start ceftriaxone 1 g IV Q 24 hours tomorrow morning. 3. Continue ceftriaxone for 25 more doses as an outpatient at [facility] infusion. 11/06/16 17:38 Subjective: Patient is sitting in her chair. She is alert and spirit it. She has no new complaints. Tolerating her cefazolin without complaint. No fevers or chills. Objective: Cefazolin #2 Vital Signs Temp Pulse Resp BP Pulse Ox 36.7 C 65 16 124/75 H 94 11/06/16 16:00 11/06/16 16:00 11/06/16 16:00 11/06/16 16:00 11/06/16 16:00 Microbiology 11/04/16 16:52 Gram Stain - Final Back - Eswab 11/04/16 16:51 Gram Stain - Final Back - Eswab 11/04/16 16:56 Mycobacterial Smear (RADHA) - Final Back - Tissue Laboratory Results 11/04/16 15:45 11/04/16 15:45 11/05/16 11/06/16 11/07/16 05:59 05:59 05:59 Intake Total 2383 800 Output Total 50 30 Balance 2333 770 ESR 65 MM/HR (0-30) H 11/04/16 15:45 C-Reactive Protein 198.5 mg/L (<10.0) H 11/04/16 15:45 - Physical Exam General Appearance: WD/WN, alert, no apparent distress, non-toxic Respiratory: lungs clear, normal breath sounds, No respiratory distress Cardiac/Chest: regular rate, rhythm, No tachycardia Skin: normal color, warm/dry, No rash Neuro/Psych: alert, normal mood/affect, oriented x 3 ICD10 Worksheet Patient Problems: Problems Problem Status Onset Colitis, acute Acute Perforated abdominal viscus Acute Peritonitis Acute Severe sepsis Acute
[2016-11-06 19:01] LABS: % IMMATURE GRANULYOCYTES 1.1 % (0.0-1.1); ABSOLUTE IMMATURE GRANULOCYTES 0.12 10^3/uL (0.00-0.10); ADD DIFF? NO; ADD MORPH? NO; ADD SCAN? NO; ATYPICAL LYMPHOCYTE FLAG 20 (0-99); FRAGMENT RBC FLAG 0 (0-99); HEMATOCRIT 24.5 % (38.0-47.0); HEMOGLOBIN 8.3 g/dL (12.6-16.3); LEFT SHIFT FLG 10 (0-99); LIPEMIA HEMOLYSIS FLAG 90 (0-99); MEAN CELL HEMOGLOBIN 30.3 pg (27.9-34.1); MEAN CELL HEMOGLOBIN CONCENTR. 33.9 g/dL (32.4-36.7); MEAN CELL VOLUME 89.4 fL (81.5-99.8); MEAN PLATELET VOLUME 11.9 fL (8.7-11.7); PLATELET CLUMPS FLAG 0 (0-99); PLATELET COUNT 178 10^3/uL (150-400); RED BLOOD CELL COUNT 2.74 10^6/uL (4.18-5.33); RED CELL DISTRIBUTION WIDTH 13.3 % (11.5-15.2)
[2016-11-06 19:03] LABS: ALANINE AMINOTRANSFERASE 27 IU/L (9-52); ALKALINE PHOSPHATASE 42 IU/L (38-126); ANION GAP 10 mEq/L (8-16); ASPARTATE AMINOTRANSFERASE 24 IU/L (14-46); BILIRUBIN,TOTAL 0.1 mg/dL (0.1-1.4); CARBON DIOXIDE 21 mEq/l (22-31); CHLORIDE 103 mEq/L (97-110); CREATININE 0.8 mg/dL (0.6-1.0); GLOMERULAR FILTRATION RATE > 60; GLUCOSE 119 mg/dL (70-100); POTASSIUM 4.4 mEq/L (3.5-5.2); SODIUM 134 mEq/L (134-144); TOTAL PROTEIN 5.4 g/dL (6.3-8.2)
[2016-11-07] MEDS: LEVOTHYROXINE 100 MCG TAB PO SCH (05:22)
[2016-11-07 06:02] LABS: % IMMATURE GRANULYOCYTES 1.8 % (0.0-1.1); ABSOLUTE IMMATURE GRANULOCYTES 0.16 10^3/uL (0.00-0.10); ADD DIFF? NO; ATYPICAL LYMPHOCYTE FLAG 20 (0-99)
[2016-11-07 06:04] LABS: PLATELET CLUMPS FLAG 300 (0-99)
[2016-11-07] MEDS: FLUDROCORTISONE ACETATE 0.1 MG TAB PO SCH (08:43)
[2016-11-07] MEDS: HYDROCORTISONE 10 MG TAB PO SCH (08:43)
[2016-11-07] MEDS: SENNOSIDES/DOCUSATE SODIUM TAB PO SCH (08:43)
[2016-11-07] MEDS: FENOFIBRATE 48 MG TAB PO SCH (08:43)
[2016-11-07] MEDS: PANTOPRAZOLE SODIUM 40 MG TAB PO SCH (08:43)
[2016-11-07] MEDS: TRIAMTERENE/HCTZ 37.5/25 1 EACH TAB PO SCH (08:45)
[2016-11-07] MEDS: OXYCODONE/APAP 5/325 TAB PO PRN ×2 (08:57→13:19)
[2016-11-07] MEDS: morphINE SR 15 MG TAB PO SCH (09:31)
[2016-11-07 11:44] VITALS: BP 94/68; PULSE 77; RESP 16; TEMP 97.7; O2SAT 96
--- NOTE | 2016-11-07 12:30 | SOAPPROG ---
SOAP Progress Note Assessment/Plan: Assessment: post op day 1 s/p I and D lumbar wound infection. Pt feeling improved today and LLE pain improved. Plan: PT , OT, I.D. consult, awaiting cxs and sensistivities. Awaiting blood cultures also. Will need iv abx and PICC. 11/05/16 15:46 11/06/16 16:05 post op day 2, s/p I and D lumbar wound infection. Cxs showing Staph Aureus MSSA. Pt has PICC line. Will d/c pt to home tomorrow if she continues to do well. 11/07/16 12:28 post op day 3, s/p I and D deep lumbar wound. Pt doing well and ready for discharge. Subjective: Pt states she wants to go home. Legs feel good. Incision minimally painful. Objective: Vital Signs Temp Pulse Resp BP Pulse Ox 36.5 C 77 16 94/68 L 96 11/07/16 11:42 11/07/16 11:42 11/07/16 11:42 11/07/16 11:42 11/07/16 11:42 Microbiology 11/04/16 16:52 Gram Stain - Final Back - Eswab 11/04/16 16:51 Gram Stain - Final Back - Eswab Laboratory Results 11/07/16 05:30 11/06/16 18:40 11/06/16 11/07/16 11/08/16 05:59 05:59 05:59 Intake Total 800 200 Output Total 30 Balance 770 200 No change in neuro exam BLE. trista's negative x 2. Lumbar wound with moderate serosanguinous drainage. No purulence. Erythema diminished. Less tender to touch. ICD10 Worksheet Patient Problems: Problems Problem Status Onset Colitis, acute Acute Perforated abdominal viscus Acute Peritonitis Acute Severe sepsis Acute
--- NOTE | 2016-11-07 13:04 | GDS ---
[f rep st] DISCHARGE SUMMARY HOSPITAL COURSE: Wanda is a pleasant 76-year-old woman well known to my practice. She was 3 weeks post revision lumbar laminectomy at L5-S1 and on the right also S1-S2 for stenosis. She had called my office with concerns of chills and increasing pain. She was seen and found to have a wound infe ction. On the day of admission, she was brought to the operating room and under a general anestheti c underwent an incision, drainage, and debridement of her lumbar wound. Findings included a small a mount of purulence, but it was both superficial and deep but did not appear to involve bone or the e pidural space. A drain was placed deep to the fascial layer and kept in for a couple of days. Cult ures were obtained. Cultures grew Staphylococcus aureus, methicillin-sensitive staph aureus. Infectious disease consultants assisted in the patient's care. Initially, patient was on Ancef. Sh e was changed to ceftriaxone. She obtained a PICC line. Her blood cultures have remained negative thus far. Her white count, which was significantly elevated at the time of admission, was down in t he normal range upon discharge. Postoperatively, she noted improvement of her leg pain and improvement of her lumbar wound pain. Patient was seen in physical therapy and occupational therapy and became independent in ambulation a nd activities of daily living. Her lumbar drain was removed on postoperative day 2. The wound did have a moderate amount of serosanguineous drainage thereafter but no purulence, and the amount of er ythema had decreased and the tenderness to palpation had markedly decreased. The patient showed no signs of sepsis. The patient is being discharged to home in satisfactory condition. She has opted to come [facility] for the next 4 weeks for IV antibiotics via her PICC line. Her knows t o change her dressing once per day. She needs to shower with her brace off and the dressing off, an d then a clean dry dressing should be applied to the lumbar wound daily. The patient knows to call my office immediately or go to the nearest emergency room if she were to have any symptoms or signs that would suggest infection again or increasing pain. Otherwise, she has done very well and is moises ng discharged to home in satisfactory condition. /[id number]/MODL
--- NOTE | 2016-11-07 18:55 | PDIAF ---
- Diagnosis Diagnosis: deep lumbar wound infection Code Status: Full Code - Medication Management Discharge Medications: Medications to Continue on Transfer Fenofibrate [Tricor] 96 mg PO DAILY 11/04/16 [Last Taken 11/04/16] Fludrocortisone Acetate [Florinef] 0.1 mg PO DAILY 11/04/16 [Last Taken Unknown] Hydrocortisone [Cortef 10 mg (*)] 10 mg PO BID 11/04/16 [Last Taken 11/04/16 1 tab] Levothyroxine [Synthroid 100 mcg (*)] 100 mcg PO DAILY06 11/04/16 [Last Taken ] Omeprazole 20 mg PO DAILY 11/04/16 [Last Taken 11/04/16] Triamterene/Hydrochlorothiazid [Triamterene-Hctz 37.5-25 mg Tb] 1 each PO DAILY 11/04/16 [Last Taken 11/04/16] Alteplase [Cathflo Activase 2 mg (*)] 2 mg IVP ONCE PRN #0 vial 11/07/16 [Last Taken Unknown] Alteplase [Cathflo Activase 2 mg (*)] 2 mg IVP PRN PRN #0 vial 11/07/16 [Last Taken Unknown] Calcium Carbonate [Tums 500MG (*)] 1,000 mg PO Q4HRS PRN #0 tab.chew 11/07/16 [ Last Taken Unknown] Diazepam [Valium 5 MG (*)] 5 mg PO HS PRN #0 11/07/16 [Last Taken 11/03/16] Diazepam [Valium 5 MG (*)] 5 mg PO HS PRN #0 tab 11/07/16 [Last Taken Unknown] Fenofibrate [Tricor] 96 mg PO DAILY #0 tab 11/07/16 [Last Taken Unknown] Fludrocortisone Acetate [Florinef] 0.1 mg PO DAILY #0 tab 11/07/16 [Last Taken Unknown] Hydrocortisone [Cortef 10 mg (*)] 10 mg PO BID #0 tab 11/07/16 [Last Taken Unknown] Levothyroxine [Synthroid 100 mcg (*)] 100 mcg PO DAILY06 #0 tab 11/07/16 [Last Taken Unknown] Triamterene/Hctz 37.5/25 [Maxzide-25 (*)] 1 each PO DAILY #0 tab 11/07/16 [Last Taken Unknown] cefTRIAXone 1 GM/DEXTROSE [Rocephin 1 gm (Premix)] 1 gm IV DAILY #0 bag [Last Taken Unknown] oxyCODONE/APAP 5/325 [Percocet 5/325 (*)] 1 - 2 tab PO Q6 #40 tab 11/07/16 [ Last Taken Unknown] oxyCODONE/APAP 5/325 [Percocet 5/325 (*)] 1 - 2 tab PO Q6 PRN #40 tab 11/07/16 [ Last Taken Unknown] Sign Erector Antibiotics: ceftriaxone 1 g IV q 24 hours Assisted Antibiotic Stop Date: 12/01/16 Discharge Medications: Refer to the Discharge Home Medication list for PRN reason. PICC Care - Routine: Yes - Orders Services needed: Registered Nurse Diet Recommendation: no restrictions on diet Diet Texture: Regular Texture Diet - Labs/Radiology CBC Date: 11/09/16 (weekly) CMP Date: 11/09/16 (weekly) Call or Fax Lab and Imaging Results to: Dr. Agatha Guajardo - Follow Up Care Current Providers and Referrals: Agatha Guajardo MD [Medical Doctor] - 11/13/16 9:30 am Rosalind Aviles MD [Primary Care Provider] - Jaja Glass MD [Medical Doctor] -
== END 2016-11-07 15:06 | disposition home or self-care (01) | DRG 858 ==
LOC: F3N 13:23
PROVIDERS: ADMIT Orthopaedic Surgery Orthopaedic Surgery of the Spine; ATTEND Orthopaedic Surgery Orthopaedic Surgery of the Spine
PROC: 0JD70ZZ Extraction of Back Subcutaneous Tissue and Fascia, Open Approach (ICD-10-PCS; principal; 2016-11-04 16:00)
PROC: 02HV33Z Insertion of Infusion Device into Superior Vena Cava, Percutaneous Approach (ICD-10-PCS; 2016-11-06)
DX: T81.4XXA Infection following a procedure, initial encounter (principal); A49.01 Methicillin susceptible Staphylococcus aureus infection, unspecified site
CPT/HCPCS: 97116-GP; 97161-GP; 97165-GO; 97530-GO; 97535-GO; C1751; G8978-GP-CJ; G8979-GP-CI; G8987-GO-CK; G8988-GO-CJ; G8989-GO-CJ; J0690; J0696; J1170; J2405; J2704; J3010; J3370

== ENCOUNTER 2016-11-22 09:25 | Inpatient (IN) | payer OTHER ==
--- NOTE | 2016-11-22 09:55 | EDPHY ---
HPI/HX/ROS/PE/MDM Narrative: CHIEF COMPLAINT: Dyspnea HPI: This patient is a 76-year-old female status 5-weeks post L5-S1 laminectomy with subsequent wound infection undergoing daily antibiotic infusions who presents to the Emergency Department today complaining of exertional SOB worsening over the past two days. She was discharged home from the hospital eight days prior to arrival. She was originally placed on an antibiotic infusion of Ancef on Wednesday but states that this was the incorrect antibiotic. On , she was switched to ceftriaxone but had an adverse reaction to this presenting with rash. For the past two days, she has been treated with infusion of Daptomycin. She first noticed increasing pedal edema four days prior to arrival. Two days ago, she first noticed exertional dyspnea that has been increasing in severity since that time. She denies chest pain or dyspnea at rest. She denies fever. She receives her antibiotic infusions daily. No history of cardiac disease. REVIEW OF SYSTEMS: Aside from elements discussed in the HPI, a comprehensive 10-point review of systems was reviewed and is negative. PMH: 1. Laminectomy performed in October 2016 2. Wound infection, currently treat with daily antibiotic infusion. PICC line in place. 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 SOCIAL HISTORY: . PHYSICAL EXAM: General:Patient is alert, in no acute distress. ENT:Eyes are normal to inspection. ENT inspection normal. Neck: Normal inspection. Full range of motion. Respiratory:No respiratory distress. Rales bilaterally. Cardiovascular: Regular rate and rhythm. Strong peripheral pulses. Normal cap refill. Abdomen:The abdomen is nontender to palpation. There are no peritoneal signs. There are normal bowel sounds. Back: Normal to inspection. No tenderness to palpation. Skin: Normal color. No rash. Warm and dry. Extremities: 3+ pedal edema bilaterally. Full range of motion. Neuro: Oriented x3. Normal motor function. Normal sensory function. ED Course: 76-year-old female under active IV antibiotic treatment for MSSA infection of laminectomy surgical wound presents with complaints of exertional dyspnea over the past four days, resolved at rest, and bilateral pedal edema over the past two days. On exam, she has bilateral rales and 3+ bilateral pedal edema. Will proceed with chest x-ray, labs, and EKG. Plan also for CTA of the chest given the patient's complaint of dyspnea and PICC line in place. Labs reviewed. Troponin is elevated at 0.10. NT-proBNP elevated at 3740. D- dimer elevated at 2.79. The patient is anemic with a hematocrit level of 22.5 This is not acute; recent hematocrit levels have ranged from 22.7-24.5 over the past month. Chest x-ray reviewed and reveals cardiomegaly of unclear chronicity and PICC line in place. 1052: Consultation with Dr. Katz, hazardous substances scientist, who recommends echocardiogram and subsequent admission to the hospitalist. 1149: CTA of the chest is negative for PE per Dr. Wan, radiology. 1201: Consultation with the hospitalist who accepts admission. Dr. Enedelia Wilson accepts admission to the PCU. Echocardiogram is pending at time of transfer. - Data Points Imaging Results: Imaging Impressions Chest X-Ray 11/22/16 10:00 Impression: Minimal interstitial edema versus viral pneumonitis with new trace right effusion Imaging: Discussed imaging studies w/ commercial makeup artist Radiologist, I viewed and interpreted images myself Laboratory Results: Laboratory Results 11/22/16 09:47 11/22/16 09:47 11/22/16 11/22/16 11/22/16 09:47 09:47 09:47 WBC 8.97 10^3/uL 10^3/uL (3.80-9.50) RBC 2.60 10^6/uL L 10^6/uL (4.18-5.33) Hgb 6.9 g/dL L g/dL (12.6-16.3) Hct 22.5 % L % (38.0-47.0) MCV 86.5 fL fL (81.5-99.8) MCH 26.5 pg L pg (27.9-34.1) MCHC 30.7 g/dL L g/dL (32.4-36.7) RDW 14.6 % % (11.5-15.2) Plt Count 290 10^3/uL 10^3/uL (150-400) MPV 10.3 fL fL (8.7-11.7) Neut % (Auto) 78.2 % H % (39.3-74.2) Lymph % (Auto) 9.3 % L % (15.0-45.0) Terrell % (Auto) 7.4 % % (4.5-13.0) Eos % (Auto) 4.5 % % (0.6-7.6) Baso % (Auto) 0.2 % L % (0.3-1.7) Nucleat RBC Rel Count 0.0 % % (0.0-0.2) Absolute Neuts (auto) 7.02 10^3/uL H 10^3/uL (1.70-6.50) Absolute Lymphs (auto) 0.83 10^3/uL L 10^3/uL (1.00-3.00) Absolute Monos (auto) 0.66 10^3/uL 10^3/uL (0.30-0.80) Absolute Eos (auto) 0.40 10^3/uL 10^3/uL (0.03-0.40) Absolute Basos (auto) 0.02 10^3/uL 10^3/uL (0.02-0.10) Absolute Nucleated RBC 0.00 10^3/uL 10^3/uL (0-0.01) Immature Gran % 0.4 % % (0.0-1.1) Immature Gran # 0.04 10^3/uL 10^3/uL (0.00-0.10) RBC/WBC/PLT Morphology NORMAL (NORMAL) Platelet Estimate ADEQUATE (ADEQ) Smear Review By Pending D-Dimer 2.79 ug/mLFEU H ug/mLFEU (0.00-0.50) Sodium 143 mEq/L mEq/L (134-144) Potassium 3.8 mEq/L mEq/L (3.5-5.2) Chloride 110 mEq/L mEq/L (97-110) Carbon Dioxide 21 mEq/l L mEq/l (22-31) Anion Gap 12 mEq/L mEq/L (8-16) BUN 18 mg/dL mg/dL (7-23) Creatinine 0.8 mg/dL mg/dL (0.6-1.0) Estimated GFR > 60 Glucose 108 mg/dL H mg/dL (70-100) Calcium 9.1 mg/dL mg/dL (8.5-10.4) Total Bilirubin 0.8 mg/dL mg/dL (0.1-1.4) Conjugated Bilirubin 0.5 mg/dL mg/dL (0.0-0.5) Unconjugated Bilirubin 0.3 mg/dL mg/dL (0.0-1.1) AST 38 IU/L IU/L (14-46) ALT 35 IU/L IU/L (9-52) Alkaline Phosphatase 66 IU/L IU/L (38-126) Troponin I 0.100 ng/mL H ng/mL (0-0.034) NT-Pro-B Natriuret Pep 3740 pg/mL H pg/mL (0-450) Total Protein 6.0 g/dL L g/dL (6.3-8.2) Albumin 3.6 g/dL g/dL (3.5-5.0) General Time Seen by Provider: 11/22/16 09:48 Initial Vital Signs: Initial Vital Signs Temperature (C) 36.9 C 11/22/16 09:26 Heart Rate 92 11/22/16 09:26 Respiratory Rate 18 11/22/16 09:26 Blood Pressure 137/58 H 11/22/16 09:26 O2 Sat (%) 91 L 11/22/16 09:26 O2 Delivery Mode Room Air Allergies/Adverse Reactions: No Known Allergies Allergy (Verified 10/14/16 02:18) Home Medications: Medication Instructions Recorded Fenofibrate [Tricor] 96 mg PO DAILY 11/04/16 Fludrocortisone Acetate [Florinef] 0.1 mg PO DAILY 11/04/16 Hydrocortisone [Cortef 10 mg (*)] 10 mg PO BID 11/04/16 Levothyroxine [Synthroid 100 mcg 100 mcg PO DAILY06 11/04/16 (*)] Omeprazole 20 mg PO DAILY 11/04/16 Triamterene/Hydrochlorothiazid 1 each PO DAILY 11/04/16 [Triamterene-Hctz 37.5-25 mg Tb] Alteplase [Cathflo Activase 2 mg 2 mg IVP ONCE PRN #0 vial 11/07/16 (*)] Alteplase [Cathflo Activase 2 mg 2 mg IVP PRN PRN #0 vial 11/07/16 (*)] Calcium Carbonate [Tums 500MG (*)] 1,000 mg PO Q4HRS PRN #0 tab.chew 11/07/16 Diazepam [Valium 5 MG (*)] 5 mg PO HS PRN #0 11/07/16 Diazepam [Valium 5 MG (*)] 5 mg PO HS PRN #0 tab 11/07/16 Fenofibrate [Tricor] 96 mg PO DAILY #0 tab 11/07/16 Fludrocortisone Acetate [Florinef] 0.1 mg PO DAILY #0 tab 11/07/16 Hydrocortisone [Cortef 10 mg (*)] 10 mg PO BID #0 tab 11/07/16 Levothyroxine [Synthroid 100 mcg 100 mcg PO DAILY06 #0 tab 11/07/16 (*)] Triamterene/Hctz 37.5/25 1 each PO DAILY #0 tab 11/07/16 [Maxzide-25 (*)] oxyCODONE/APAP 5/325 [Percocet 1 - 2 tab PO Q6 #40 tab 11/07/16 5/325 (*)] oxyCODONE/APAP 5/325 [Percocet 1 - 2 tab PO Q6 PRN #40 tab 11/07/16 5/325 (*)] Neurontin 11/17/16 Daptomycin 500 mg IV 11/21/16 Departure - Departure Disposition: [facility] Inpatient Acute Clinical Impression: Elevated troponin Condition: Fair Referrals: Rosalind Aviles MD [Primary Care Provider] - As per Instructions Report Scribed for: Ru Brooks Report Scribed by: Fátima Reyna Date of Report: 11/22/16 Time of Report: 09:51 Physician Review and Approval Statement: Portions of this note were transcribed by an ED scribe. I personally performed the history, physical exam, and medical decision making; and confirm the accuracy of the information in the transcribed note.
[2016-11-22 10:08] LABS: % IMMATURE GRANULYOCYTES 0.4 % (0.0-1.1); ABSOLUTE IMMATURE GRANULOCYTES 0.04 10^3/uL (0.00-0.10); ADD DIFF? NO; ADD MORPH? YES; ADD SCAN? NO; ATYPICAL LYMPHOCYTE FLAG 50 (0-99); FRAGMENT RBC FLAG 0 (0-99); HEMATOCRIT 22.5 % (38.0-47.0); LEFT SHIFT FLG 0 (0-99); LIPEMIA HEMOLYSIS FLAG 80 (0-99); MEAN CELL HEMOGLOBIN 26.5 pg (27.9-34.1); MEAN CELL HEMOGLOBIN CONCENTR. 30.7 g/dL (32.4-36.7); MEAN CELL VOLUME 86.5 fL (81.5-99.8); MEAN PLATELET VOLUME 10.3 fL (8.7-11.7); PLATELET CLUMPS FLAG 0 (0-99); PLATELET COUNT 290 10^3/uL (150-400); RED CELL DISTRIBUTION WIDTH 14.6 % (11.5-15.2)
[2016-11-22 10:11] LABS: HEMOGLOBIN 6.9 g/dL (12.6-16.3)
[2016-11-22 10:17] LABS: ALANINE AMINOTRANSFERASE 35 IU/L (9-52); ALBUMIN 3.6 g/dL (3.5-5.0); ALKALINE PHOSPHATASE 66 IU/L (38-126); ANION GAP 12 mEq/L (8-16); ASPARTATE AMINOTRANSFERASE 38 IU/L (14-46); BILIRUBIN,TOTAL 0.8 mg/dL (0.1-1.4); BILIRUBIN-CONJUGATED 0.5 mg/dL (0.0-0.5); BILIRUBIN-UNCONJUGATED 0.3 mg/dL (0.0-1.1); CALCIUM 9.1 mg/dL (8.5-10.4); CARBON DIOXIDE 21 mEq/l (22-31); CHLORIDE 110 mEq/L (97-110); CREATININE 0.8 mg/dL (0.6-1.0); GLOMERULAR FILTRATION RATE > 60; GLUCOSE 108 mg/dL (70-100); POTASSIUM 3.8 mEq/L (3.5-5.2); SODIUM 143 mEq/L (134-144)
--- NOTE | 2016-11-22 10:21 | CPEKG ---
Heart Rate: 79 RR Interval: 759 P-R Interval: 148 QRSD Interval: 88 QT Interval: 392 QTC Interval: 450 P [place]: 51 QRS [place]: 21 T Wave [place]: 26 EKG Severity - BORDERLINE ECG - EKG Impression: SINUS RHYTHM EKG Impression: PROBABLE LEFT ATRIAL ABNORMALITY EKG Impression: LOW VOLTAGE IN FRONTAL LEADS EKG Impression: CONSIDER ANTERIOR INFARCT Electronically Signed By: Karey Chapman 25-Nov-2016 00:52:51
[2016-11-22 10:33] LABS: PLATELET ESTIMATE ADEQUATE (ADEQ)
--- NOTE | 2016-11-22 10:59 | CPEKG ---
Heart Rate: 77 RR Interval: 779 P-R Interval: 148 QRSD Interval: 84 QT Interval: 408 QTC Interval: 462 P [place]: 53 QRS [place]: 32 T Wave [place]: 14 EKG Severity - BORDERLINE ECG - EKG Impression: SINUS RHYTHM EKG Impression: LOW VOLTAGE IN FRONTAL LEADS EKG Impression: BORDERLINE R WAVE PROGRESSION, ANTERIOR LEADS Electronically Signed By: Karey Chapman 25-Nov-2016 00:52:30
[2016-11-22] MEDS ORDERED: IOPAMIDOL (ISOVUE 370) 100 ML BTL IV ONE (11:06)
[2016-11-22] MEDS ORDERED: LORazepam 2 MG/ML INJ IVP PRN (12:50)
--- NOTE | 2016-11-22 13:27 | ECHO ---
[id number] + + [address] : : [place] [address] : : [phone] + + Adult Echocardiographic Report + + :Name: JEFF ISLAS MICHELLEGIEStudy Date: 11/22/2016 12:34 PM : : Hospital Admission Number: [id number] Location: ER: :: 1940 Gender: Female Height: 66 in : :Age: 76 yrs Race: WH Weight: 138 lb : :Reason For Study: Eval LV Fx : : BSA: 1. 7 meters2 : :History: Dyspnea, Elevated Troponins, Post Surgery : + + MMode/2D Measurements \T\ Calculations IVSd: 0.98 cm LVIDd: 4.2 cm FS: 38.8 % Ao root diam: 2.9 cm LVPWd: 1.1 cm LVIDs: 2.5 cm EDV(Teich): 77.3 ml ACS: 1.6 cm ESV(Teich): 23.4 ml EF(Teich): 69.6 % LVOT diam: 1.9 cm LVOT area: 2.8 cm2 Normal Measurement Values: + + :LVIDd (3.5-5.7cm) IVSd (0.6-1.1cm) LVPWd (0.6-1.1cm) Aortic Root (2.0-3.7cm)Left Atrium (1.5-4.0cm): :LV Vol(d) (76-115ml) LV Vol(s) (29-48ml) Ejec Fraction (50-65%)PV Eleazar (0.6- 1.2m/s) TV Eleazar (0.4-1.0m/s) : :MV E Eleazar (0.8-1.0m/s)MV A Eleazar (0.3-1.0m/s)LVOT Eleazar (0.7-1.2m/s) Asc Ao Eleazar ( 0.9-1.8m/s) : + + Doppler Measurements \T\ Calculations MV dec time: MV V2 max: MV P1/2t max eleazar: Ao V2 max: 0.38 sec 258.0 cm/sec 181.7 cm/sec 210.3 cm/sec MV max PG: MV P1/2t: 104.6 msec Ao max P.6 mmHg 17.8 mmHg MV V2 mean: MVA(P1/2t): 2.1 cm2 Ao mean P.0 cm/sec MV dec slope: 11.0 mmHg MV mean P.0 cm/sec2 Ao V2 mean: 13.0 mmHg 149.0 cm/sec MV V2 VTI: 71.8 cm Ao V2 VTI: 53.8 cm MVA(VTI): 1.3 cm2 ANASTACIA(I,D): 1.8 cm2 ANASTACIA(V,D): 1.7 cm2 LV V1 max: SV(LVOT): 96.1 ml TR max eleazar: 126.0 cm/sec 419.0 cm/sec LV V1 max PG: TR max P.2 mmHg 6.4 mmHg RAP systole: LV V1 mean P.0 mmHg 4.0 mmHg RVSP(TR): 80.2 mmHg LV V1 mean: 86.6 cm/sec LV V1 VTI: 33.9 cm Left Ventricle The left ventricle is normal in size. There is normal left ventricular wall thickness. The left ventricular ejection fraction is normal. There is Doppler evidence for diastolic dysfunction. Ejection Fraction = 68%. No regional wall motion abnormalities noted. Right Ventricle The right ventricle is normal in size and function. Atria The left atrium is moderately dilated. Right atrial size is normal. Mitral Valve There is moderate mitral annular calcification. There is mild mitral stenosis. The MV mean PG is 12 mmHg. The MVA by pressure 1/2t is 2.0cm2. Turbulent flow noted thru the mitral valve. There is trace mitral regurgitation. Tricuspid Valve There is moderate tricuspid regurgitation. Right ventricular systolic pressure is 80mmHg. There is Doppler evidence for severe pulmonary hypertension. Aortic Valve Mild-Moderate Aortic Valve Calcification. The aortic valve is trileaflet. There is no aortic stenosis. Great Vessels The aortic root is normal size. Pericardium/Pleural There is no pericardial effusion. Conclusion This is a limited echo to evaluate LV Function and pulmonary pressures. The patient has a dilated IVC. The left ventricular ejection fraction is normal. There is Doppler evidence for diastolic dysfunction. Ejection Fraction = 68%. There is normal wall motion. The left atrium is moderately dilated. Mild-Moderate Aortic Valve Calcification There is moderate mitral annular calcification. There is mild mitral stenosis without involvment of the mitral leaflets. Turbulent flow noted thru the mitral valve. The MV mean PG is 12 mmHg. The MVA by pressure 1/2t is 2.0cm2 There is trace mitral regurgitation. There is moderate tricuspid regurgitation. Right ventricular systolic pressure is 80mmHg. There is Doppler evidence for severe pulmonary hypertension. There is no pericardial effusion. The patient has a dilated IVC. Final Reading Physician: Kaveh Harrison signed on 11/22/2016 01:26 PM Ordering Physician: Ru Brooks Performed By: Gamal Barone, D[employer]
[2016-11-22] MEDS ORDERED: DIAZEPAM 5 MG TAB PO PRN (14:25)
[2016-11-22 14:39] LABS: TROPONIN I 0.103 ng/mL (0-0.034)
--- NOTE | 2016-11-22 14:39 | PCMIDPN ---
Assessment/Plan: Assessment/Plan: 1. Deep lumbar wound infection -s/p L5, S1 lamintomy, b/l L5S1 foraminectomy, right S1,2 foramintomy on . Washout on 11/04/16 -on Daptomycin. Tentative end date is 12/01/16 - Found to be anemia with Hgb at 6.9. To recieve blood today. -Ct chest with mild air space disease, no pneumonitis. Doubt dapto related issues but will follow closely -Continue with dapto for now. Subjective: Pt known to ID service. Currently under the care of Dr. Guajardo for deep lumbar wound infection. Medical record reviewed. In brief: she underwent L5, S1 lamintomy, b/l L5S1 foraminectomy, right S1,2 foramintomy on 10/13/16. Came in on 11/03/16 with worsening symptoms. Underwent wash out on 11/04/16 where in cultures showed MSSA/P. acnes in one culture and MSSA in another. She was on Ancef in the hospital and then transitioned to Ceftriaxone for OP continued care. OP note reveal possible rash on chest/trunk/back with suspicion could be related to Ceftraixone, thus patient was changed to Daptomycin on 11/20/16. She has recieved three doses. Today at the infusion center she c/o shortness of breath, LE edema etc. She went immediately to ER for further evaluation. She had CXR which showed mild interstial changes, and Ct chest revealed no PE, but mild RML air space disease. She had an ECHO. She had one elevated troponin and was admitted. .She feels better now. mostly short of breath wiht exertion and not with rest. denies cough, or sputum production. denies abd pain or diarrhea. Objective: Vital Signs Temp Pulse Resp BP Pulse Ox 36.9 C 92 18 137/58 H 91 L 11/22/16 09:26 11/22/16 09:26 11/22/16 09:26 11/22/16 09:11/22/16 09:26 - Physical Exam General Appearance: alert, no apparent distress EENT: other (mild facial swelling?) Respiratory: lungs clear Cardiac/Chest: regular rate, rhythm, systolic murmur Extremities: swelling Skin: other (blotchy red spots on chest and back. no bullae, vesicles, pustules , desquamtion noted) ICD10 Worksheet Patient Problems: Problems Problem Status Onset Elevated troponin Acute Colitis, acute Acute Perforated abdominal viscus Acute Peritonitis Acute Severe sepsis Acute
[2016-11-22 15:02] LABS: CREATINE KINASE-MB FRACTION 1.44 ng/mL (0-3.19)
[2016-11-22 15:26] LABS: TOTAL IRON BINDING CAPACITY 409 ug/dL (260-490)
--- NOTE | 2016-11-22 15:32 | GCON ---
[f rep st] CONSULTATION CARDIOLOGY CONSULTATION DATE OF CONSULTATION: 11/22/2016 REFERRING PHYSICIAN: Enedelia Wilson MD REASON FOR CONSULTATION: 1. Worsening dyspnea on exertion. 2. Bilateral lower extremity edema. 3. Elevated troponin. 4. Elevated BNP. HISTORY OF PRESENT ILLNESS: This patient is a 76-year-old woman with no prior cardiac history other than hypertension. She underwent lumbar spine surgery approximately 5 weeks ago. Unfortunately, s he developed a postoperative infection and has been receiving daily intravenous antibiotic therapy v ia a PICC line. Each day she arrives and rangel her car and walks into the infusion Center. Over past week or so, she has noticed increasing dyspnea on exertion to the point where over the past c ouple of days, she has had to stop approximately every 10 feet to catch her breath. Over the past 4 days, she has noticed new onset of bilateral lower extremity edema. She has not had any chest disc omfort, palpitations, or orthopnea. When she mentioned these symptoms to the nurse at the infusion center today, it was recommended that she be evaluated in the emergency room. There, her ECG was un remarkable. A CT angiogram of the chest was negative for evidence of pulmonary embolism. There was a note of atherosclerosis of the aorta but no mention of any coronary calcification. Her BNP was m oderately elevated at 3740. Troponin came back mildly elevated at 0.1. She had no ischemic changes on her EKG. Her cardiac risk profile was notable for her age and a history of hypertension. She h ad been on triamterene/hydrochlorothiazide for several years; however, over recent weeks, her blood pressure has been slightly low, and her blood pressure medication was discontinued. She also has a history of dyslipidemia, for which she takes Tricor. A lipid panel performed in January 2015 demo nstrated a total cholesterol of 200 with HDL 75, LDL 108, and triglycerides 85. PAST MEDICAL HISTORY: Notable for hypertension and Ralph disease. Also for her hyperlipidemia. SURGICAL HISTORY: Includes repair of a perforated colon following colonoscopy. This required place ment of a colostomy for 3 months in 2016. She is status post left total knee replacement and ORIF o f her left ankle. Recent back surgery as previously mentioned. MEDICATIONS: Home medications consist of her outpatient intravenous antibiotic infusion, diazepam, Synthroid, hydrocortisone, fludrocortisone, Tricor, and Percocet. ALLERGIES: Ceftriaxone. FAMILY HISTORY: No family history of cardiovascular disease. SOCIAL HISTORY: She is . She is originally from [place]. She does not smoke or consume si gnificant amounts of alcohol. REVIEW OF SYSTEMS: Apart from the dyspnea on exertion, peripheral edema, and back pain, a 10-point review was negative. PHYSICAL EXAMINATION: VITAL SIGNS: Blood pressure 137/58, heart rate in the 80s with sinus rhythm on the monitor. GENERAL: Well-developed, well-nourished woman, in no acute distress. She is alert and oriented x3. HEAD AND NECK: No scleral icterus. Mucous membranes moist. Carotid pulses 2+ w ithout bruits. There is no JVD. CHEST: Lung parra clear to auscultation bilaterally. CARDIAC: Regular rate and rhythm with a normal S1 and S2. There is a 2/6 systolic ejection murmur. There is no gallop. ABDOMEN: Soft, nondistended, nontender without masses. Normal bowel sounds. EXTREMITIES: 2+ pulses. 2+ bilateral lower extremity edema. LABORATORY STUDIES: Sodium 143, potassium 3.8, BUN and creatinine 18 and 0.8. BNP 374, and troponi n 0.1. Her CBC demonstrates a white blood cell count of 8.97 with hemoglobin and hematocrit of 6.9 and 22.5. Platelet count is 290,000. She has had ongoing issues with anemia, but this is the lowes t hemoglobin and hematocrit she has demonstrated. ECG: Her ECG demonstrates normal sinus rhythm. There are no conduction system disturbances. Compu ter interpretation mentions possible anterior MT based on reduced height of the R-wave in V3; howeve r, this also could be consistent with a lead reversal of V2 and V3. No ischemic ST-T wave abnormali ties. Chest x-ray: Normal cardiac size. Trace bilateral pleural effusions. No evidence of pulmonary tahir ma. Echocardiogram: A limited echocardiogram was performed. That study demonstrates normal left ventri cular systolic function with an ejection fraction of 68%. Diastolic dysfunction was noted. She has moderate mitral annular calcification with trace mitral regurgitation. There is a component of sanjana ral stenosis with a mean pressure gradient of 12 mmHg and a calculated mitral valve area of 2.0 sq c m. She has moderate tricuspid regurgitation and severe pulmonary hypertension with an estimated PA systolic pressure of 80 mmHg. She has jias-na-pigmvxyi aortic valve sclerosis. IMPRESSION: This is a 76-year-old woman who presents with worsening dyspnea on exertion and pedal e meaghan. She has a moderately elevated BNP consistent with acute congestive heart failure. She has mi ld bilateral pleural effusions but no evidence of pulmonary edema. Her situation is probably multif actorial related to her anemia, mild mitral stenosis, and pulmonary hypertension. Her troponin elev ation is likely secondary to subendocardial ischemia in the setting of increased myocardial oxygen d emand. She has no symptoms of angina or ECG changes to suggest acute ischemia. PLAN: The patient has been placed on telemetry. Transfusion of packed red blood cells is planned. She has been started on intravenous doses of furosemide. She will have serial cardiac enzymes. Sh e will need some sort of ischemic evaluation, depending on her clinical course and the results of he r subsequent sets of cardiac enzymes. Will make her n.p.o. after midnight tonight. /[id number]/MODL
[2016-11-22 15:36] LABS: % SATURATION 3 % (20-55); IRON < 10.1 mcg/dL (37-170)
[2016-11-22] MEDS: HEPARIN 5,000 UNIT/0.5 ML SYR SC SCH ×2 (15:59→20:47)
[2016-11-22] MEDS: OXYCODONE/APAP 5/325 TAB PO PRN ×2 (16:02→21:56)
[2016-11-22] MEDS: FUROSEMIDE 20 MG/2 ML VIAL IVP SCH (18:00)
--- NOTE | 2016-11-22 19:15 | PDGENHP ---
History and Physical - Chief Complaint shortness of breath when walking - History of Present Illness Noticed increasing SOB when walking into infusion center this week for daily IV antibiotics. Had L5-S1 laminectomy with bilateral L5-S1 foraminotomy, right S1- S2 foraminotomy 10/13/2016 Dr Degroot, post op infection down to deep fascia layer s/p washout 11/04/2016 with MSSA. She has been on IV antibiotics since 11/04 (ancef when inpt, changed to rocephin as o/p but then to dapsone 2016 after possible rash/allergy reaction noted). Followed by Dr Casandra FERRER ( plan IV antibiotics until 12/01/2016). PCP Dr Rosalind Aviles. PICC in place. Denies previous evaluation with heme/onc for anemia. Denies melena/hematochezia/ change in BM/abd pain/KENRICK sxs. Denies f/v/d/HAYDEN. No SOB when in bed resting. Denies CP. + leg swelling B worsening in last few days. History Information - Allergies/Home Medication List Allergies/Adverse Reactions: ceftriaxone Allergy (Intermediate, Verified 11/22/16 12:53) Rash Home Medications: Fenofibrate [Tricor] 96 mg PO DAILY 11/04/16 [Last Taken 11/22/16] Fludrocortisone Acetate [Florinef] 0.1 mg PO DAILY 11/04/16 [Last Taken 11/22/16 ] Hydrocortisone [Cortef 10 mg (*)] 10 mg PO BID 11/04/16 [Last Taken 11/22/16 08: 00] Levothyroxine [Synthroid 100 mcg (*)] 100 mcg PO DAILY06 11/04/16 [Last Taken ] Omeprazole 20 mg PO DAILY 11/04/16 [Last Taken 11/22/16] Acetaminophen [Tylenol 325mg (*)] 650 mg PO Q6 PRN 11/22/16 [Last Taken Unknown] DAPTOmycin [Cubicin 500mg vial (*)] 360 mg IV DAILY 11/22/16 [Last Taken ] diphenhydrAMINE [Benadryl 25 MG (*)] 25 mg PO BID PRN 11/22/16 [Last Taken 11/21] I have personally reviewed and updated: medical history, social history, surgical history - Past Medical History Additional medical history: Ralph's, hypothyroid, chronic back pain/sciatica ( s/p laminectomy-Dr Degroot), anemia, hyperlipidemia, hx transverse colitis with perforated bowel 2015 - Surgical History Additional surgical history: 09/2016- L5-S1 laminectomy with bilateral L5-S1 foraminotomy, right S1-S2 foraminotomy Dr Degroot, post op infection down to deep fascia layer s/p washout 11/04/2016 with MSSA. 10/2015- bowel perforation /bowel resection/colostomy, 01/2016 colostomy revision/reconnect Dr Loo. L knee replacement, L ankle ORIF - Social History Smoking Status: Never smoked Alcohol Use: None Drug Use: None Additional social history: lives with at home/independent Review of Systems ROS: 10pt was reviewed & negative except for what was stated in HPI & below Constitutional: Denies: chills, fever Respiratory: Denies: cough Muscolosketal: Reports: back pain, other (L sciatica, was supposed to start gabapentin per Dr Degroot, not doing PT yet) Skin: Reports: other (scabs on R LE from trauma taking on/off compression stockings) Neurological: Denies: anxiety, emotional problems Hematologic/Lymphatic: Reports: anemia Physical Exam Temp Pulse Resp BP Pulse Ox 98.2 F 80 11 L 132/63 H 95 11/22/16 16:24 11/22/16 16:24 11/22/16 16:24 11/22/16 16:24 11/22/16 16:24 O2 (L/minute) 2 Constitutional: no apparent distress, appears nourished, not in pain, No uncomfortable Eyes: PERRL, anicteric sclera, EOMI Ears, Nose, Mouth, Throat: moist mucous membranes, hearing normal, ears appear normal, no oral mucosal ulcers Cardiovascular: regular rate and rhythym, systolic murmur (2/6), pulses symmetric bilaterally, edema (2+ pitting B), No JVD, No carotid bruit Respiratory: no respiratory distress, no rales or rhonchi, clear to auscultation , No expiratory wheeze, No inspiratory crackles Gastrointestinal: normoactive bowel sounds, soft, non-tender abdomen, no palpable masses Skin: warm, other (abrassion/scab R LL- slight erythema surrounding area, no fluctuance/exudate/crusting) Musculoskeletal: other (back brace on) Neurologic: other (awake/alert/appropriate) Psychiatric: interacting appropriately, not anxious, not encephalopathic, thought process linear, anxious, No depressed Lab Data & Imaging Review 11/22/16 09:47 11/22/16 09:47 WBC 8.97 10^3/uL (3.80-9.50) 11/22/16 09:47 RBC 2.60 10^6/uL (4.18-5.33) L 11/22/16 09:47 Hgb 6.9 g/dL (12.6-16.3) L 11/22/16 09:47 Hct 22.5 % (38.0-47.0) L 11/22/16 09:47 MCV 86.5 fL (81.5-99.8) 11/22/16 09:47 MCH 26.5 pg (27.9-34.1) L 11/22/16 09:47 MCHC 30.7 g/dL (32.4-36.7) L 11/22/16 09:47 RDW 14.6 % (11.5-15.2) 11/22/16 09:47 Plt Count 290 10^3/uL (150-400) 11/22/16 09:47 MPV 10.3 fL (8.7-11.7) 11/22/16 09:47 Neut % (Auto) 78.2 % (39.3-74.2) H 11/22/16 09:47 Lymph % (Auto) 9.3 % (15.0-45.0) L 11/22/16 09:47 [place] % (Auto) 7.4 % (4.5-13.0) 11/22/16 09:47 Eos % (Auto) 4.5 % (0.6-7.6) 11/22/16 09:47 Baso % (Auto) 0.2 % (0.3-1.7) L 11/22/16 09:47 Nucleat RBC Rel Count 0.0 % (0.0-0.2) 11/22/16 09:47 Absolute Neuts (auto) 7.02 10^3/uL (1.70-6.50) H 11/22/16 09:47 Absolute Lymphs (auto) 0.83 10^3/uL (1.00-3.00) L 11/22/16 09:47 Absolute Monos (auto) 0.66 10^3/uL (0.30-0.80) 11/22/16 09:47 Absolute Eos (auto) 0.40 10^3/uL (0.03-0.40) 11/22/16 09:47 Absolute Basos (auto) 0.02 10^3/uL (0.02-0.10) 11/22/16 09:47 Absolute Nucleated RBC 0.00 10^3/uL (0-0.01) 11/22/16 09:47 Immature Gran % 0.4 % (0.0-1.1) 11/22/16 09:47 Immature Gran # 0.04 10^3/uL (0.00-0.10) 11/22/16 09:47 RBC/WBC/PLT Morphology NORMAL (NORMAL) 11/22/16 09:47 Platelet Estimate ADEQUATE (ADEQ) 11/22/16 09:47 D-Dimer 2.79 ug/mLFEU (0.00-0.50) H 11/22/16 09:47 Sodium 143 mEq/L (134-144) 11/22/16 09:47 Potassium 3.8 mEq/L (3.5-5.2) 11/22/16 09:47 Chloride 110 mEq/L (97-110) 11/22/16 09:47 Carbon Dioxide 21 mEq/l (22-31) L 11/22/16 09:47 Anion Gap 12 mEq/L (8-16) 11/22/16 09:47 BUN 18 mg/dL (7-23) 11/22/16 09:47 Creatinine 0.8 mg/dL (0.6-1.0) 11/22/16 09:47 Estimated GFR > 60 11/22/16 09:47 Glucose 108 mg/dL (70-100) H 11/22/16 09:47 Calcium 9.1 mg/dL (8.5-10.4) 11/22/16 09:47 Iron < 10.1 mcg/dL (37-170) L 11/22/16 09:47 TIBC 409 ug/dL (260-490) 11/22/16 09:47 Iron Saturation 3 % (20-55) L 11/22/16 09:47 Total Bilirubin 0.8 mg/dL (0.1-1.4) 11/22/16 09:47 Conjugated Bilirubin 0.5 mg/dL (0.0-0.5) 11/22/16 09:47 Unconjugated Bilirubin 0.3 mg/dL (0.0-1.1) 11/22/16 09:47 AST 38 IU/L (14-46) 11/22/16 09:47 ALT 35 IU/L (9-52) 11/22/16 09:47 Alkaline Phosphatase 66 IU/L (38-126) 11/22/16 09:47 CK-MB (CK-2) Fraction 1.44 ng/mL (0-3.19) 11/22/16 14:00 Troponin I 0.097 ng/mL (0-0.034) H 11/22/16 16:10 NT-Pro-B Natriuret Pep 3740 pg/mL (0-450) H 11/22/16 09:47 Total Protein 6.0 g/dL (6.3-8.2) L 11/22/16 09:47 Albumin 3.6 g/dL (3.5-5.0) 11/22/16 09:47 Patient ABO/Rh A POSITIVE 11/22/16 15:00 Antibody Screen NEGATIVE 11/22/16 15:00 Crossmatch IS Only See Detail 11/22/16 15:00 Visualized and Interpreted Chest x-ray results: Yes Chest X-Ray results: no infiltrate, effusion Visualized and Interpreted imaging results: Yes Visualized and Interpreted EKG results: Yes EKG Interpretation: Positive for: NS ST wave abnormalities Assessment & Plan Assessment: ASSESSMENT/PLAN: 1. DAVID- sl elev troponin, elev BNP, + d dimer (s/p surgery) but no PE on CTA. + RML consolidation noted but no clinic suspicion of PNA/Pneumonitis at this time. Suspect cardiac/CHF + anemia + deconditioning/post-op + age+ pHTN. Noted mod TR/LA enlargement, diastolic dysfunction, severe pHTN, EF 68%, Aortic and mitral valve calcifications on echo. Appreciate cardiology consult and will await recommendations re imaging/further eval. IV lasix, recheck labs in AM. 2. Anemia- significantly lower than prev. Has had anemia chronically, but denies previous heme/onc eval. Colonoscopy 01/2016 neg. Check hemoccult. Check iron. 2U PRBC today. Consider heme/onc consult here vs as o/p. 3. Ralph's- continue regular florinef/cortef doses. Consider stress dosing. Watch electrolytes and BP closely. 4. Wound infection, chronic IV abx. Discussed care with Dr Wiseman, ID. Appreciate assistance. Dapsone continued. 5. s/p laminectomy. Says pain OK with po meds, continued. OK to start gabapentin here as advised by Dr Degroot per pt's report. PT/OT eval. 6. Hypothyroid-po home med 7. DVT prophy- TEDs, deferred anti-coag bc of possible procedure tomorrow FULL CODE, PCP Dr Tanika Aviles dispo- anticipate >2 mdnts bc of complexity of multiple medical problems, pending cardiac eval
[2016-11-22] MEDS ORDERED: MAGNESIUM HYDROXIDE 30 ML UDCUP PO PRN (19:20)
[2016-11-22] MEDS ORDERED: LACTULOSE 20 GM/30 ML UDCUP PO PRN (19:20)
[2016-11-22] MEDS ORDERED: BISACODYL 10 MG SUPP PR PRN (19:20)
[2016-11-22] MEDS ORDERED: POTASSIUM CL 20 MEQ TAB PO ONE (19:27)
[2016-11-22] MEDS: POLYETHYLENE GLYCOL 3350 17 GM PKT PO SCH (20:47)
[2016-11-22] MEDS: FERROUS SULFATE 140 MG TAB.ER PO SCH (20:47)
[2016-11-22] MEDS: DOCUSATE SODIUM 100 MG CAP PO SCH (20:48)
[2016-11-22] MEDS: HYDROCORTISONE 10 MG TAB PO SCH (20:48)
[2016-11-22] MEDS: SENNOSIDES/DOCUSATE SODIUM TAB PO SCH (21:58)
[2016-11-23] MEDS: FUROSEMIDE 20 MG/2 ML VIAL IVP SCH ×5 (00:10→23:06)
[2016-11-23] MEDS: LEVOTHYROXINE 100 MCG TAB PO SCH (05:29)
[2016-11-23 05:58] LABS: HEMATOCRIT 27.2 % (38.0-47.0); HEMOGLOBIN 8.8 g/dL (12.6-16.3); MEAN CELL HEMOGLOBIN CONCENTR. 32.4 g/dL (32.4-36.7); MEAN CELL VOLUME 86.6 fL (81.5-99.8); RED BLOOD CELL COUNT 3.14 10^6/uL (4.18-5.33); RED CELL DISTRIBUTION WIDTH 14.4 % (11.5-15.2)
[2016-11-23 06:05] LABS: INR 1.2 (0.83-1.16); PROTIME(PATIENT) 15.2 SEC (12.0-15.0)
[2016-11-23 06:14] LABS: ANION GAP 11 mEq/L (8-16); CALCIUM 8.6 mg/dL (8.5-10.4); CARBON DIOXIDE 23 mEq/l (22-31); CHLORIDE 110 mEq/L (97-110); CHOLESTEROL 129 mg/dL (140-220); CHOLESTEROL/HDL RATIO 2.39 RATIO (1.00-4.44); CREATININE 0.9 mg/dL (0.6-1.0); GLOMERULAR FILTRATION RATE > 60; GLUCOSE 101 mg/dL (70-100); HIGH DENSITY LIPOPROTEIN 54 mg/dL (40-85); LDL/HDL RATIO 1.06 RATIO (1.00-3.22); LOW DENSITY LIPOPROTEIN 57 mg/dL (80-100); MAGNESIUM 1.8 mg/dL (1.6-2.3); NON-HIGH DENSITY LIPOPROTEIN 75 mg/dL (90-129); POTASSIUM 4.1 mEq/L (3.5-5.2); SODIUM 144 mEq/L (134-144); TRIGLYCERIDE 94 mg/dL (35-135); VERY LOW DENSITY LIPOPROTEINS 18 mg/dL (8-25)
[2016-11-23] MEDS ORDERED: NON-FORMULARY NEW DRUG (Omeprazole [Omeprazole] 20 MG) PO SCH (09:00)
[2016-11-23] MEDS ORDERED: DAPTOMYCIN IV SCH (09:00)
--- NOTE | 2016-11-23 09:04 | PCMIDPN ---
Assessment/Plan: Assessment: Deep space Lumbar wound infection lumbar area-MSSA and P acnes in prior culture. Patient covered with daptomycin currently. She presented complaining of dyspnea. CT scan of her chest shows a right-sided focal small infiltrate but she has no cough or focal respiratory symptoms. She continues to be managed with daptomycin for her wound infection but clearly this agent is not active in the lungs. At this point however the diagnosis for her dyspnea seems to be newly diagnosed diastolic heart failure. She is improved markedly with diuresis. Plan: 1. Continue daptomycin for her lumbar wound infection. 2. Continue cardiology management for her heart failure issues. 3. Follow clinical course 11/23/16 15:34 11/23/16 15:36 Subjective: Patient is resting in her bed in her hospital room. She denies any new complaint. She states she feels much better. No fevers or chills. No cough. Objective: Daptomycin (ongoing treatment from prior to admission) Vital Signs Temp Pulse Resp BP Pulse Ox 37.1 C 82 17 114/55 L 95 11/23/16 04:00 11/23/16 04:00 11/23/16 04:00 11/23/16 04:00 11/23/16 04:00 Laboratory Results 11/23/16 05:25 11/23/16 05:25 11/22/16 11/23/16 11/24/16 05:59 05:59 05:59 Intake Total 400 Output Total 3100 Balance -2700 - Physical Exam General Appearance: WD/WN, alert, no apparent distress, non-toxic Respiratory: lungs clear, normal breath sounds, No respiratory distress Cardiac/Chest: regular rate, rhythm, No tachycardia Extremities: non-tender, normal inspection Skin: normal color, warm/dry, No rash Neuro/Psych: alert, normal mood/affect, oriented x 3 ICD10 Worksheet Patient Problems: Problems Problem Status Onset Elevated troponin Acute Colitis, acute Acute Perforated abdominal viscus Acute Peritonitis Acute Severe sepsis Acute
[2016-11-23] MEDS ORDERED: ALTEPLASE 2 MG VIAL IVP PRN (09:45)
[2016-11-23] MEDS ORDERED: diphenhydrAMINE 25 MG CAP PO PRN (09:45)
--- NOTE | 2016-11-23 10:17 | HOSPPROG ---
Hospitalist Progress Note Assessment/Plan: 76 yo F admitted w scute diastolic heart failure in setting of new iron deficiency anemia fe deficeincy: no clear episode of blood loss hg fell 11-8 between 11/04-, which is when her washout was rec inpt upper/lower endoscopy acute diastolid hear failure w MS: continue diuresis add'l day ABLA: give IV iron today wound infection: dapto proph: start LMWH in AM code: full + trop: unlikely ACS Subjective: case d/w dr velarde. tele: no events (interp by me) Objective: Vital Signs Temp Pulse Resp BP Pulse Ox 36.4 C 70 19 135/60 H 93 11/23/16 07:55 11/23/16 07:55 11/23/16 07:55 11/23/16 07:55 11/23/16 07:55 Laboratory Results 11/23/16 05:25 11/23/16 05:25 11/22/16 11/23/16 11/24/16 05:59 05:59 05:59 Intake Total 400 Output Total 3100 1000 Balance -2700 -1000 PT 15.2 SEC (12.0-15.0) H 11/23/16 05:25 INR 1.20 (0.83-1.16) H 11/23/16 05:25 - Physical Exam Constitutional: no apparent distress, appears nourished Eyes: PERRL, anicteric sclera Ears, Nose, Mouth, Throat: moist mucous membranes, hearing normal Cardiovascular: regular rate and rhythym, no murmur, rub, or gallop, systolic murmur Respiratory: no respiratory distress, no rales or rhonchi Gastrointestinal: normoactive bowel sounds, soft, non-tender abdomen Genitourinary: no bladder fullness, No gee in urethra Skin: warm Musculoskeletal: full muscle strength Neurologic: AAOx3 ICD10 Worksheet Patient Problems: Problems Problem Status Onset Elevated troponin Acute Colitis, acute Acute Perforated abdominal viscus Acute Peritonitis Acute Severe sepsis Acute
[2016-11-23] MEDS: DAPTOmycin 360 MG in NS 100 ML IV SCH (10:31)
[2016-11-23] MEDS: FLUDROCORTISONE ACETATE 0.1 MG TAB PO SCH (10:36)
[2016-11-23] MEDS: HYDROCORTISONE 10 MG TAB PO SCH ×2 (10:36→20:48)
[2016-11-23] MEDS: PANTOPRAZOLE SODIUM 40 MG TAB PO SCH (10:36)
[2016-11-23] MEDS: FENOFIBRATE 48 MG TAB PO SCH (10:37)
[2016-11-23] MEDS: GABAPENTIN 100 MG CAP PO SCH ×2 (10:37→20:48)
[2016-11-23] MEDS: DOCUSATE SODIUM 100 MG CAP PO SCH ×3 (10:38→20:49)
[2016-11-23] MEDS: SENNOSIDES/DOCUSATE SODIUM TAB PO SCH ×2 (10:59→23:03)
[2016-11-23] MEDS: POLYETHYLENE GLYCOL 3350 17 GM PKT PO SCH (11:00)
--- NOTE | 2016-11-23 11:13 | PDCARPN ---
Cardiology Progress Note Assessment/Plan: Assessment: D-HF Admitted yesterday for edema SOB, and anemia. History of PHT. BNP 3740 on admit, and today 2340. She was given IV Lasix and feels much better today. LVF preserved at 68%. Will continue Lasix . Iron Deficiency Anemia-- was given PRBC yesterday. ELEV Trop: Admit 0.1, 0.09, today 0.118. Will continue to watch closely. Trop in AM. Consider Nuc stress test. Likely non-cardiac. Plan: Trop in AM to follow trend. 11/23/16 15:37 Subjective: I feel much better and want to go home. Objective: Vital Signs (8 Hrs) Temp Pulse Resp BP Pulse Ox 11/23/16 11:00 36.8 C 97 20 159/73 H 93 11/23/16 07:55 36.4 C 70 19 135/60 H 93 11/23/16 04:00 37.1 C 82 17 114/55 L 95 Intake/Output (24 Hrs) 11/22/16 11/23/16 11/24/16 05:59 05:59 05:59 Intake Total 400 Output Total 3100 1000 Balance -2700 -1000 Intake: Oral (ml) 400 Output: Urine (ml) 3100 1000 Bedside Commode 1100 Toilet 2000 1000 Other: Weight 69.1 kg Number of Voids Bedside Commode 1 Toilet 2 2 Number of Stools Toilet 1 Result Diagrams: 11/23/16 05:25 11/23/16 05:25 Cardiac Labs: Cardiac Lab Results (72 Hrs) 11/22/16 11/22/16 16:10 14:00 CK-MB (CK-2) Fraction 1.44 Troponin I 0.097 H 0.103 H - Physical Exam Cardiovascular: regular rate and rhythm, no murmurs, no rubs, no gallops Respiratory: no crackles, reduced air movement, No no wheezes Skin: warm Neurologic: AAOx3 Psychiatric: cooperative, interactive ICD10 Worksheet Patient Problems: Problems Problem Status Onset Colitis, acute Acute Perforated abdominal viscus Acute Severe sepsis Acute Peritonitis Acute Elevated troponin Acute
[2016-11-23] MEDS: SODIUM FERRIC GLUCONAT/SUCROSE 125 MG in NS 100 ML IV SCH (11:50)
[2016-11-23] MEDS: FERROUS SULFATE 140 MG TAB.ER PO SCH (12:01)
--- NOTE | 2016-11-23 12:19 | GCON ---
[f rep st] CONSULTATION GASTROINTESTINAL INPATIENT CONSULTATION. DATE OF CONSULTATION: 11/23/2016 REFERRING PHYSICIAN: Efraín Zurita MD CHIEF COMPLAINT: I was kindly requested to see this patient by Dr. Efraín Zurita in consultation for a chief complaint of anemia. HISTORY OF PRESENT ILLNESS: She was admitted to the hospital with shortness of breath, and found to have a hematocrit of 22.5%. She denies melena, bright red blood per rectum, or maroon stools. On February 11, 2016, her hematocrit was 22.7%. This was after colon surgery. She was placed on oral iron, and her hematocrit on October 06 of this year was 37 % as a result. She then underwent surgery with Dr. Glass around 10/06. We do not have a postop hematocrit in the system. On November 04, she was readmitted to the hospital, where she had a hematocrit of 33.1%. She then underwent a second surgery with Dr. Glass. Two days later, on November 06, her hematocrit had dropped postoperatively to 24.5%. It has remained at this level since (for example, on November 09, it was 23.4%). Now, as above, 22.5%. After her November 06 surgery, she was placed on oral iron, but it has only been for several weeks. PAST MEDICAL HISTORY: 1. As above. 2. [place]'s. 3. Hypothyroid. 4. Elevated lipids. 5. Past perforated bowel with surgery. 6. Otherwise, noncontributory. ALLERGIES: Include ceftriaxone. MEDICATIONS: Outpatient medications include the above. Inpatient medications include senna, subcu heparin, Synthroid, Neurontin, Protonix, MiraLAX, Lasix, daptomycin, IV iron, Florinef, Tricor. She also, I believe, received 2 units of blood, and her hematocrit today is 27.2%. SOCIAL HISTORY: Negative for alcohol abuse. FAMILY HISTORY: Negative for similar anemia. REVIEW OF SYSTEMS: Positive pertinent review of systems as per my HPI. Otherwise, a complete review of systems is negative. PHYSICAL EXAMINATION: CONSTITUTIONAL: Nontoxic pleasant woman. SKIN: Warm, dry. EYES: Pupils equal, round, reactive to light and accommodation. EARS, NOSE, MOUTH, AND THROAT: Oropharynx without masses, moist mucosa. CARDIOVASCULAR: Normal S2, normal PMI. RESPIRATORY: Lungs clear to auscultation and percussion anteriorly. GASTROINTESTINAL: Abdomen soft, nontender. NEUROLOGIC: Grossly nonfocal, cranial nerves grossly intact. PSYCHIATRIC: Orientation, insight appropriate. MUSCULOSKELETAL: Grossly normal throughout, normal station. LABORATORIES: Include the above. Normal liver function tests. Normal TSH. Iron saturation 3%. Prothrombin time 15.2. ASSESSMENT: Anemia, almost, without doubt, due to her surgeries. With my review of her past history, it does seem that she eventually responds to oral iron when given the appropriate amount of time. Regardless, here in the hospital, she has gotten a significant amount of iron through transfusion, IV iron, etc. PLAN: No gastrointestinal evaluation needed, such as colonoscopy, upper endoscopy, etc., at this point. Further management as per the hospitalist service. Thank you for allowing me to help in the care of this patient. /[id number]/MODL MTDD
[2016-11-23 12:36] LABS: TROPONIN I 0.118 ng/mL (0-0.034)
[2016-11-24 05:55] VITALS: PULSE 88
[2016-11-24] MEDS: FUROSEMIDE 20 MG/2 ML VIAL IVP SCH ×2 (06:09→14:18)
[2016-11-24] MEDS: LEVOTHYROXINE 100 MCG TAB PO SCH (06:09)
[2016-11-24 08:45] VITALS: BP 120/66; RESP 18; TEMP 97.9; O2SAT 95
[2016-11-24] MEDS: SODIUM FERRIC GLUCONAT/SUCROSE 125 MG in NS 100 ML IV SCH (08:57)
[2016-11-24] MEDS ORDERED: ENOXAPARIN 40 MG/0.4 ML SYR SC SCH (09:00)
[2016-11-24] MEDS: DOCUSATE SODIUM 100 MG CAP PO SCH (09:06)
[2016-11-24] MEDS: PANTOPRAZOLE SODIUM 40 MG TAB PO SCH (09:07)
[2016-11-24] MEDS: GABAPENTIN 100 MG CAP PO SCH (09:07)
[2016-11-24] MEDS: HYDROCORTISONE 10 MG TAB PO SCH (09:07)
[2016-11-24] MEDS: FLUDROCORTISONE ACETATE 0.1 MG TAB PO SCH (09:07)
[2016-11-24] MEDS: FENOFIBRATE 48 MG TAB PO SCH (09:07)
[2016-11-24] MEDS: POLYETHYLENE GLYCOL 3350 17 GM PKT PO SCH (09:08)
[2016-11-24] MEDS: SENNOSIDES/DOCUSATE SODIUM TAB PO SCH (09:08)
--- NOTE | 2016-11-24 10:08 | HOSPPROG ---
Hospitalist Progress Note Assessment/Plan: 76 yo F admitted w scute diastolic heart failure in setting of new iron deficiency anemia fe deficeincy: attributable to surgery has received 2 doses of IV iron here, plus transfusion will dc on po iron acute diastolic hear failure w MS: continue diuresis add'l day indet trop: not associated w CP or EKG changes rec oupt stress ABLA: give IV iron today wound infection: dapto proph: start LMWH in AM code: full + trop: unlikely ACS dispo: home today > 30 minutes Subjective: feels well. ready for dc Objective: Vital Signs Temp Pulse Resp BP Pulse Ox 36.6 C 88 18 120/66 95 11/24/16 08:00 11/24/16 08:00 11/24/16 08:00 11/24/16 08:00 11/24/16 08:00 Laboratory Results 11/23/16 05:25 11/23/16 05:25 11/23/16 11/24/16 11/25/16 05:59 05:59 05:59 Intake Total 400 1260 Output Total 3100 4350 Balance -2700 -3090 PT 15.2 SEC (12.0-15.0) H 11/23/16 05:25 INR 1.20 (0.83-1.16) H 11/23/16 05:25 - Physical Exam Constitutional: no apparent distress, appears nourished Eyes: PERRL, anicteric sclera Ears, Nose, Mouth, Throat: moist mucous membranes, hearing normal Cardiovascular: regular rate and rhythym, no murmur, rub, or gallop, diastolic murmur Respiratory: no rales or rhonchi, clear to auscultation, No no respiratory distress Gastrointestinal: normoactive bowel sounds, soft, non-tender abdomen Genitourinary: No gee in urethra Skin: warm, normal color Musculoskeletal: full muscle strength, no muscle tenderness Neurologic: AAOx3 ICD10 Worksheet Patient Problems: Problems Problem Status Onset Elevated troponin Acute Colitis, acute Acute Perforated abdominal viscus Acute Peritonitis Acute Severe sepsis Acute
[2016-11-24] MEDS: DAPTOmycin 360 MG in NS 100 ML IV SCH (10:32)
--- NOTE | 2016-11-24 16:02 | GDS ---
[f rep st] DISCHARGE SUMMARY DISCHARGE DIAGNOSES: 1. Blood loss anemia, symptomatic. 2. Methicillin-sensitive Staphylococcus aureus postoperative infection on IV daptomycin. 3. Mitral stenosis. 4. Valvular heart failure. 5. Iron deficiency anemia. 6. Indeterminate troponin in the setting of heart failure and significant anemia, with normal EKG. HOSPITAL COURSE: Please see admission history and physical by Dr. Enedelia Wilson. The patient presen lawrence on the morning of the 2nd with dyspnea on exertion. She was found to be anemic with a hemoglobi n of 6.9; she was not actively bleeding. She had a microcytosis and iron studies consistent with an emia of iron deficiency. She received IV iron x2 days, as well as 2 units of packed red cells, with improvement in her hematocrit. She was seen by GI for consideration of endoscopy, but review of he r hematocrit suggests that her blood loss really occurred around the time of her surgery, and probab ly her smoldering infection in her back, in the absence of iron, has made it difficult for her to carver ve a return. The patient received IV iron. She is discharged on oral iron. She had troponin of 0.1 that was fairly steady without EKG changes, and she was advised to see [facility] for an outpatient stress test. She had no events on telemetry. /[id number]/MODL
== END 2016-11-24 12:19 | disposition home or self-care (01) | DRG 811 ==
LOC: OBSVTOIN 12:50 → F2W 12:52
PROVIDERS: ADMIT Family Medicine; ATTEND Family Medicine
PROC: 30233N1 Transfusion of Nonautologous Red Blood Cells into Peripheral Vein, Percutaneous Approach (ICD-10-PCS; principal; 2016-11-22)
DX: D62 Acute posthemorrhagic anemia (principal); I50.31 Acute diastolic (congestive) heart failure; Q23.2 Congenital mitral stenosis; D50.9 Iron deficiency anemia, unspecified; A49.01 Methicillin susceptible Staphylococcus aureus infection, unspecified site; I05.9 Rheumatic mitral valve disease, unspecified; E03.9 Hypothyroidism, unspecified; Z79.2 Long term (current) use of antibiotics; E78.5 Hyperlipidemia, unspecified
CPT/HCPCS: J0878; J1650; J1940; J2916; P9016; Q9967

== ENCOUNTER → 2017-01-26 | Outpatient (CLI) | payer OTHER | LOC: FIMAGING 07:45 | PROVIDERS: ATTEND Physician Assistant | DX: M51.36 Other intervertebral disc degeneration, lumbar region (principal); M51.37 Other intervertebral disc degeneration, lumbosacral region; M12.88 Other specific arthropathies, not elsewhere classified, other specified site; M48.06 Spinal stenosis, lumbar region; M99.73 Connective tissue and disc stenosis of intervertebral foramina of lumbar region; M43.17 Spondylolisthesis, lumbosacral region; M51.27 Other intervertebral disc displacement, lumbosacral region ==

== ENCOUNTER 2017-02-19 07:24 | Day surgery (SDC) | payer OTHER ==
[2017-02-19] MEDS ORDERED: ASPIRIN EC 325 MG TAB PO ONE (07:28)
[2017-02-19] MEDS ORDERED: NS 1,000 ML IV ONE (07:28)
[2017-02-19] MEDS ORDERED: FAMOTIDINE 20 MG TAB PO ONE (07:28)
[2017-02-19] MEDS ORDERED: DIAZEPAM 5 MG TAB PO ONE (07:28)
--- NOTE | 2017-02-19 08:00 | CPEKG ---
Heart Rate: 65 RR Interval: 923 P-R Interval: 152 QRSD Interval: 86 QT Interval: 420 QTC Interval: 437 P [place]: 62 QRS [place]: 18 T Wave [place]: 30 EKG Severity - ABNORMAL ECG - EKG Impression: SINUS RHYTHM EKG Impression: LEFT ATRIAL ABNORMALITY EKG Impression: LOW VOLTAGE THROUGHOUT EKG Impression: BORDERLINE R WAVE PROGRESSION, ANTERIOR LEADS Electronically Signed By: Jonatan Suarez 22-Feb-2017 17:36:09
[2017-02-19] MEDS ORDERED: diphenhydrAMINE 25 MG CAP PO ONE (08:15)
[2017-02-19 08:20] LABS: % IMMATURE GRANULYOCYTES 0.3 % (0.0-1.1); ABSOLUTE IMMATURE GRANULOCYTES 0.02 10^3/uL (0.00-0.10); ADD DIFF? NO; ADD MORPH? NO; ADD SCAN? NO; ATYPICAL LYMPHOCYTE FLAG 10 (0-99); FRAGMENT RBC FLAG 20 (0-99); HEMATOCRIT 39.2 % (38.0-47.0); HEMOGLOBIN 13.1 g/dL (12.6-16.3); LEFT SHIFT FLG 0 (0-99); LIPEMIA HEMOLYSIS FLAG 80 (0-99); MEAN CELL HEMOGLOBIN 29.4 pg (27.9-34.1); MEAN CELL HEMOGLOBIN CONCENTR. 33.4 g/dL (32.4-36.7); MEAN CELL VOLUME 88.1 fL (81.5-99.8); MEAN PLATELET VOLUME 10.9 fL (8.7-11.7); PLATELET CLUMPS FLAG 20 (0-99); PLATELET COUNT 190 10^3/uL (150-400); RED BLOOD CELL COUNT 4.45 10^6/uL (4.18-5.33); RED CELL DISTRIBUTION WIDTH 16.6 % (11.5-15.2)
[2017-02-19 08:31] LABS: INR 1.08 (0.83-1.16); PROTIME(PATIENT) 13.9 SEC (12.0-15.0)
[2017-02-19 08:49] LABS: ANION GAP 9 mEq/L (8-16); CARBON DIOXIDE 26 mEq/l (22-31); CHLORIDE 105 mEq/L (97-110); CHOLESTEROL 169 mg/dL (140-220); CHOLESTEROL/HDL RATIO 2.22 RATIO (1.00-4.44); CREATININE 0.9 mg/dL (0.6-1.0); GLOMERULAR FILTRATION RATE > 60; GLUCOSE 88 mg/dL (70-100); HIGH DENSITY LIPOPROTEIN 76 mg/dL (40-85); LDL/HDL RATIO 1.04 RATIO (1.00-3.22); LOW DENSITY LIPOPROTEIN 79 mg/dL (80-100); MAGNESIUM 2.1 mg/dL (1.6-2.3); NON-HIGH DENSITY LIPOPROTEIN 93 mg/dL (90-129); POTASSIUM 4.3 mEq/L (3.5-5.2); SODIUM 140 mEq/L (134-144); TRIGLYCERIDE 74 mg/dL (35-135); VERY LOW DENSITY LIPOPROTEINS 14 mg/dL (8-25)
[2017-02-19] MEDS ORDERED: traMADol 50 MG TAB PO SCH (09:15)
--- NOTE | 2017-02-19 09:33 | PDHPUP ---
History & Physical Update H&P update statement: This history and physical update is based on an assessment of the patient which was completed after admission or registration (within 24 hours), but prior to the surgery/procedure. H&P update: H&P reviewed & patient examined, no change in patient's condition since H&P completed
--- NOTE | 2017-02-19 09:33 | PDPROPOC ---
Sedation Plan of Care Sedation Plan of Care: vital signs stable, mental status noted, patient educated of risks, benefits, alternatives, patient can tolerate sedation ASA Classification: ASA 2 Planned drugs: fentanyl, midazolam Mallampati Score: Class 1 Mallampati Reference Image: Patient passed 3-3-2 rule?: Yes
[2017-02-19] MEDS ORDERED: fentaNYL 100 MCG/2 ML INJ ONE (09:34)
[2017-02-19] MEDS ORDERED: MIDAZOLAM 2 MG/2 ML VIAL ONE (09:34)
[2017-02-19] MEDS ORDERED: LIDOCAINE 1% 300 MG/30 ML SDV ONE (09:34)
[2017-02-19] MEDS ORDERED: IOPAMIDOL (ISOVUE-370) 150 ML BTL IV ONE ×2 (09:35)
[2017-02-19] MEDS ORDERED: HYDROCODONE/APAP 5/325 TAB PO PRN (10:30)
[2017-02-19] MEDS ORDERED: NITROGLYCERIN 0.4 MG BTL SL PRN (10:30)
[2017-02-19] MEDS ORDERED: ATROPINE SULFATE 1 MG/10 ML SYR IVP PRN (10:30)
[2017-02-19] MEDS ORDERED: ATROPINE SULFATE 1 MG/10 ML SYR ONE (10:33)
--- NOTE | 2017-02-19 10:37 | PDDXCAT ---
Diagnostic Cath Note - . Date: 02/19/17 Automotive Electrician Helper: Frank Gasoline Dragline Operator: Frank Indication: other (Dyspnea on exertion, abnormal stress test, and valvular heart disease.) - Procedure Access: right groin Procedure: left heart catheterization, coronary angiography, left ventriculogram , right heart catheterization - Materials Left Heart Cath size: 6F Left Heart Cath materials: standard multipack (JL4, JR4, pigtail) Right Heart Cath size: 7F Right Heart Cath materials: PWP catheter - Findings-Left Heart Catheterization LM: Angiographically normal. LAD: Angiographically normal. LCX: Angiographically normal. RCA: Angiographically normal. EDP: 14 mmHg LVEF: 70% Wall motion: Normal - Findings-Right Heart Catheterization RA: 8 mmHg RV: 48/6 mmHg PA: 44/12/24 mmHg O2 sat 66.6% PAOP: 12 mmHg AO: 134/60/88 mmHg O2 sat 84.3% CO: 4.82 L/min Mitral Valve area: 2.33 sq cm CI: 2.8 L/min/sq mtr Complications: None Estimated blood loss: <50ml Closure method: Angioseal Assessment: 1) Normal LV systolic function. 2) Angiographically normal coronary arteries. 3) Mildy elevated pulmonary artery pressure. 4) No hemodynamically significant mitral stenosis. Patient Problems: Problems Problem Status Onset Colitis, acute Acute Elevated troponin Acute Perforated abdominal viscus Acute Peritonitis Acute Severe sepsis Acute
== END 2017-02-19 15:08 | disposition home or self-care (01) ==
LOC: FCATH 07:24
PROVIDERS: ATTEND Internal Medicine Interventional Cardiology
DX: R06.00 Dyspnea, unspecified (principal); I27.2 Other secondary pulmonary hypertension; I10 Essential (primary) hypertension; R94.39 Abnormal result of other cardiovascular function study
CPT/HCPCS: J0461; J1644; J2250; J3010; Q9967

== ENCOUNTER → 2017-06-05 | Outpatient (CLI) | payer OTHER | LOC: FIMAGING 08:02 | PROVIDERS: ATTEND Physician Assistant | DX: M25.561 Pain in right knee (principal); S83.271A Complex tear of lateral meniscus, current injury, right knee, initial encounter; M24.10 Other articular cartilage disorders, unspecified site ==

== ENCOUNTER → 2017-09-30 | Outpatient (CLI) | payer OTHER | LOC: FIMAGING 11:08 | PROVIDERS: ATTEND Internal Medicine Rheumatology | DX: Z13.820 Encounter for screening for osteoporosis (principal); M81.0 Age-related osteoporosis without current pathological fracture; Z78.0 Asymptomatic menopausal state ==

== ENCOUNTER → 2018-02-02 | Outpatient (CLI) | payer OTHER ==
--- NOTE | 2018-02-05 10:25 | ECHO ---
[email or web address] [address] [address] Main: [phone] Fax: Transthoracic Echocardiogram Name: JEFF ISLAS MR#: [id number] Study Date: 02/02/2018 Study Time: 01:39 PM Date of : 1940 Age: 77 year(s) Height: ( ) Weight: ( ) BSA: Gender: Female Examination: Echo Indication: Mitral stenosis/pulmonary HTN Image Quality: Contrast: Requested by: Damian Brown BP: / Heart Rate: Rhythm: Indication: Mitral stenosis/pulmonary HTN Procedure Staff House Supervisor: Hemalatha Romero RDCS Reading Physician: Adeel Katz MD Requesting Provider: Conclusions: Normal size left ventricle. Mild to moderate LVH. Global hypercontractility of the left ventricle. The ejection fraction is estimated to be 75-80 %. No regional wall motion abnormality. Grade 1 diastolic dysfunction (abnormal relaxation). The left atrium is severely dilated. The right atrium is mildly dilated. Severe mitral annular calcification. AV max PG is 24mmHG. AV mean PG is 13mmHG.. Mild to moderate tricuspid valve regurgitation. The pulmonary artery pressure is normal. The echo of 02/07 performed at [facility] reported a MV mean PG of 6mmHG.. Measurements: Chambers Valvular Assessment AV/MV Valvular Assessment TV/PV Normal Normal Normal Name Value Range Name Value Range Name Value Range Ao Gwendolyn (2D): 3.3 cm (1.4 cm-2.6 AV Vmax: 2.44 m/s (1 m/s-1.7 TR Vmax: 2.71 mm/s ( - ) cm) m/s) TR PGmax: 29 mmHg ( - ) IVSd (2D): 1.1 cm (0.6 cm-1.1 AV meanP mmHg ( - ) syst. PAP: 34 mmHg ( - ) cm) ANASTACIA (VTI): 1.5 cm ( - ) LVDd (2D): 4.3 cm (3.9 cm-5.3 MV E Vmax: 0.96 m/s ( - ) cm) MV A Vmax: 1.78 m/s ( - ) LVDs (2D): 2.5 cm (2.1 cm-4 MV E/A: 0.54 ( - ) cm) MV meanP mmHg ( - ) LVPWd (2D): 0.8 cm ( - ) MV PHT: 0.198 s ( - ) LVOTd 1.8 cm 1.8 cm mm MVA (Vmax): 1.9 m/s ( - ) LVEF (2D): 74 (>=54 %) MVA (PHT): 1.1 s ( - ) EF Range: 75-80 % MVA (2D): 1.8 cm2 ( - ) Patient: JEFF ISLAS Study Date: 02/02/2018 Page 1 of 2 01:39 PM Continued Measurements: Chambers Valvular Assessment AV/MV Valvular Assessment TV/PV Name Value Name Value Name Value LADs: 4.0 cm MV DecTime: 588 m/s CVP (est.): 5 mmHg LADs Lon.5 cm MV E' Septal: 0.03 m/s LA Area: 30.7 cm2 MV E/E' Septal: 29.70 LA Volume: 107 ml MV E/E' Lateral: 35.00 MV VTI: 40.10 cm Additional Vessels Name Value Ao Ascendin.0 cm Findings: Left Ventricle: Normal size left ventricle. Mild to moderate LVH. Global hypercontractility of the left ventricle. The ejection fraction is estimated to be 75-80 %. No regional wall motion abnormality. Grade 1 diastolic dysfunction (abnormal relaxation). Right Ventricle: Normal size right ventricle. Left Atrium: The left atrium is severely dilated. There ia an atrial septal aneurysm with left excursion. Right Atrium: The right atrium is mildly dilated. Mitral Valve: Severe mitral annular calcification. There is severe thickening of the mitral valve leaflets. Mild mitral valve regurgitation is present. MV mean PG is 4mmHG.. Aortic Valve: The aortic valve is tri-leaflet. Moderate aortic cusp calcification is present. AV max PG is 24mmHG. AV mean PG is 13mmHG.. Tricuspid Valve: The tricuspid valve is normal in appearance and function. Mild to moderate tricuspid valve regurgitation. The pulmonary artery pressure is normal. Pulmonic Valve: The pulmonic valve is normal in appearance and function. Trivial pulmonic valve regurgitation. Aorta: The aorta is normal. Pericardium: No pericardial effusion. Exam Comments: The echo of 02/07 performed at [facility] reported a MV mean PG of 6mmHG.. (No Signature Object) Patient: JEFF ISLAS Study Date: 02/02/2018 Page 2 of 2 01:39 PM [id number]
== END ==
LOC: FCP 13:28
PROVIDERS: ATTEND Internal Medicine Cardiovascular Disease
DX: I05.0 Rheumatic mitral stenosis (principal); I27.20 Pulmonary hypertension, unspecified

== ENCOUNTER → 2018-03-22 | Outpatient (CLI) | payer OTHER | LOC: FIMAGING 10:41 | DX: M51.36 Other intervertebral disc degeneration, lumbar region (principal); M12.88 Other specific arthropathies, not elsewhere classified, other specified site; M99.73 Connective tissue and disc stenosis of intervertebral foramina of lumbar region; M48.061 Spinal stenosis, lumbar region without neurogenic claudication ==

== ENCOUNTER → 2018-03-31 | Outpatient (CLI) | payer OTHER | LOC: FIMAGING 13:14 | PROVIDERS: ATTEND Physician Assistant Surgical | DX: S22.060A Wedge compression fracture of T7-T8 vertebra, initial encounter for closed fracture (principal); M12.88 Other specific arthropathies, not elsewhere classified, other specified site; M50.30 Other cervical disc degeneration, unspecified cervical region; M43.12 Spondylolisthesis, cervical region; M48.56XA Collapsed vertebra, not elsewhere classified, lumbar region, initial encounter for fracture; K44.9 Diaphragmatic hernia without obstruction or gangrene ==

== ENCOUNTER 2018-05-04 06:26 | Day surgery (SDC) | payer OTHER ==
[2018-05-04] MEDS ORDERED: ACETAMINOPHEN 500 MG TAB PO ONE (06:55)
[2018-05-04] MEDS ORDERED: ceFAZolin 2 GM/DEXTROSE 100 ML IV ONE (06:55)
[2018-05-04] MEDS ORDERED: LR 1,000 ML IV ONE (06:56)
[2018-05-04] MEDS ORDERED: CHLORHEXIDINE GLUC HIBICLENS 118 ML BTL TP ONE (07:51)
[2018-05-04] MEDS ORDERED: SURGIFLO MATRIX KIT WITH THROMBIN 8 ML TP ONE (07:51)
[2018-05-04] MEDS ORDERED: GENTAMICIN SULFATE 80 MG/2 ML VIAL ONE (07:51)
[2018-05-04] MEDS ORDERED: BUPIVACAINE/EPI 0.25% 30 ML SDV ONE (07:51)
[2018-05-04] MEDS ORDERED: LIDOCAINE 1% 300 MG/30 ML SDV ONE (07:51)
--- NOTE | 2018-05-04 09:01 | PDANEPAE ---
ANE Past Medical History - Cardiovascular History Hx Hypertension: Yes Hx Arrhythmias: No Hx Chest Pain: No Hx Coronary Artery / Peripheral Vascular Disease: No Hx CHF / Valvular Disease: Yes Hx Palpitations: No Cardiovascular History Comment: HYPERLIPIDEMIA. mitral stenosis - Pulmonary History Hx COPD: No Hx Asthma/Reactive Airway Disease: No Hx Recent Upper Respiratory Infection: Yes Hx Oxygen in Use at Home: Yes O2 in Use at Home (L/minute): 2.L at noc Hx Sleep Apnea: No Sleep Apnea Screening Result - Last Documented: Negative Pulmonary History Comment: hx of pna 2011 - Neurologic History Hx Cerebrovascular Accident: No Hx Seizures: No Hx Dementia: No - Endocrine History Hx Diabetes: No Endocrine History Comment: HYPOTHYROID. Addisons disease - Renal History Hx Renal Disorders: No Renal History Comment: DECREASED KIDNEY FUNCTION - Liver History Hx Hepatic Disorders: No - Neurological & Psychiatric Hx Hx Neurological and Psychiatric Disorders: No - Cancer History Hx Cancer: No - Congenital Disorder History Hx Congenital Disorders: No - GI History Hx Gastrointestinal Disorders: Yes Gastrointestinal History Comment: exp lap with sigmoid resection and colostomy placed 10/27/15. colostomy reversed - Other Health History Other Health History: none - Chronic Pain History Chronic Pain: Yes (chronic lower back, sciatica to left leg and now right leg) - Surgical History Prior Surgeries: exp lap with sigmoid resection and colectomy, colostomy placed with ira 10/27/15. left tka with 09/16/15. MARJORIE REMOVAL FROM LEFT LEG 07/2015. Broken ankle and fibia 2011 ANE Review of Systems Review of Systems: - Exercise capacity METS (RN): 4 METS ANE Patient History - Allergies Allergies/Adverse Reactions: No Known Allergies Allergy (Verified 05/03/18 18:13) - Home Medications Home Medications: Fenofibrate [Tricor] 11/04/16 [Last Taken 05/04/18] Fludrocortisone Acetate [Florinef] 11/04/16 [Last Taken 05/04/18] Hydrocortisone [Cortef 10 mg (*)] 11/04/16 [Last Taken 05/04/18] Levothyroxine [Synthroid 100 mcg (*)] 11/04/16 [Last Taken 05/04/18] Omeprazole 11/04/16 [Last Taken 05/04/18] Atorvastatin Calcium [Lipitor 10 mg (*)] 02/18/17 [Last Taken 05/04/18] Calcium Carbonate [Oyster Shell Calcium 500 mg (*)] 02/18/17 [Last Taken ] Cholecalciferol Vit D3 [Vitamin D3 2000 units tab (OTC)] 02/18/17 [Last Taken 05/04/18] Furosemide [Lasix 40 MG (*)] 02/18/17 [Last Taken 05/04/18] Gabapentin [Neurontin 300 MG (*)] 02/18/17 [Last Taken 05/02/18] Herbals/Supplements -Info Only 02/18/17 [Last Taken 04/28/18] Multivitamins [Multivitamin (*)] 02/18/17 [Last Taken 04/28/18] Potassium Cl [Klor-Con 20 meq (*)] 02/18/17 [Last Taken 05/03/18] traMADol [Ultram 50 mg (*)] 02/18/17 [Last Taken 05/04/18] Ferrous Sulfate [Slow Fe 140 MG (*)] 05/03/18 [Last Taken 04/28/18] Levoxyl 05/03/18 [Last Taken 05/04/18] - NPO status NPO Since - Liquids (Date): 05/04/18 NPO Since - Liquids (Time): 05:00 NPO Since - Solids (Date): 04/22/18 - Smoking Hx Smoking Status: Former smoker - Family Anes Hx Family Hx Anesthesia Complications: none ANE Labs/Vital Signs - Labs Result Diagrams: 05/04/18 07:40 - Vital Signs Blood Pressure: 134/73 Heart Rate: 70 Respiratory Rate: 16 O2 Sat (%): 92 Height: 167.64 cm Weight: 64.864 kg ANE Physical Exam - Airway Mallampati Score: Class 2 - ASA Status ASA Status: III ANE Anesthesia Plan Anesthesia Plan: MAC
[2018-05-04] MEDS ORDERED: fentaNYL 100 MCG/2 ML INJ ONE ×3 (09:08→11:03)
[2018-05-04] MEDS ORDERED: MIDAZOLAM 2 MG/2 ML VIAL ONE (09:08)
[2018-05-04] MEDS ORDERED: PROPOFOL/EMULSION 500 MG/50 ML BOTTLE IV ONE (09:08)
[2018-05-04] MEDS ORDERED: THROMBIN (BOVINE) 5,000 UNIT VIAL TP ONE (09:48)
[2018-05-04] MEDS ORDERED: NALOXONE HCL 0.4 MG/ML INJ IVP PRN (10:43)
[2018-05-04] MEDS ORDERED: LR 500 ML IV PRN (10:43)
--- NOTE | 2018-05-04 10:44 | POSTANESTH ---
Post Anesthetic Evaluation Cardiovascular Status: Similar to Pre-Op Cond Respiratory Status: Normal, Stable Level of Consciousness/Mental Status: Can Participate in Eval Pain Control: Adequate, Prn Tx Ordered Nausea/Vomiting Control: Adequate, Prn Tx Ordered Complications Possibly Related to Anesthesia: None Noted
[2018-05-04] MEDS: HYDROmorphONE/DILAUDID 2 MG/ML INJ IVP PRN ×5 (10:46→11:44)
[2018-05-04] MEDS: fentaNYL 100 MCG/2 ML INJ IVP PRN ×4 (10:46→11:24)
[2018-05-04] MEDS ORDERED: HYDROmorphONE/DILAUDID 2 MG/ML INJ ONE (10:46)
[2018-05-04] MEDS ORDERED: ONDANSETRON DISINTEGRATING 4 MG TAB PO PRN (10:47)
--- NOTE | 2018-05-04 10:50 | POSTOPPROG ---
Post Op Note Date of Operation: 05/04/18 Surgeon: Marie Rendon Inspector Eyeglass: Diana Kelley PA-C Anesthesiologist: Dr. Navarrete Anesthesia: IV Sedation, Local (Specify) Pre-op Diagnosis: Chronic pain Post-op Diagnosis: Chronic pain Procedure: Thoracic laminectomy for spinal cord stimulator paddle lead trial Inf/Abcess present in the surg proc area at time of surgery?: No Depth: Deep Incisional (Fascial) EBL: 50-100 Plan Plan: 78 yo female s/p thoracic laminectomy for SCS paddle lead trial - neuro checks - pain control - advance diet as tolerated - dc home today Exam Seen in recovery Following commands ARMENDARIZ Incisions with dressings c/d/i
[2018-05-04] MEDS ORDERED: HYDROCODONE/APAP 5/325 TAB ONE ×2 (11:03→12:14)
--- NOTE | 2018-05-04 11:11 | GOP ---
DATE OF OPERATION: 05/04/2018 SURGEON: Marie Rendon DO NEUROSURGEON: Marie Rendon DO STEM PROCESSING MACHINE OPERATOR: Diana Kelley PA-C. PREOPERATIVE DIAGNOSIS: 1. Chronic pain syndrome. 2. Failed back syndrome. POSTOPERATIVE DIAGNOSIS: 1. Chronic pain syndrome. 2. Failed back syndrome. PROCEDURE PERFORMED: 1. Thoracic laminectomy, placement of T9-10 Medtronic spinal cord stimulator 565 SureScan paddle yadi d for trial with tunneling to the right. 2. Impedances. FINDINGS: SPECIMENS: None. ESTIMATED BLOOD LOSS: 30 mL. INDICATIONS: This is an 78-year-old female with severe chronic intractable left leg pain, occasional mild right leg pain, and some mild low back pain, who is not a candidate for further surgical interv ention. She was evaluated by a multidisciplinary team and found to be a good candidate for spinal co rd stimulator trial. She elected to move forward. DESCRIPTION OF PROCEDURE: She was identified, consented. Sites were marked. Brought to the operati ng room, anesthetized under local with MAC. Rolled in the OR bed with a Jeffrey frame. All pressure points were appropriately padded. Counted up from the sacrum to shahbaz the T10-11 level for a laminect debbie. She was prepped and draped in the usual sterile fashion. Incision was anesthetized with 0.25% Marcaine with epinephrine and 1% lidocaine in a 50:50 mixture. Incision was made with a 10 blade. H emostasis was obtained with bipolar Bovie, dissecting down on the lamina of T10-11. Placed a Penfiel d 4. Took an x-ray counting up from the sacrum. Verified with the appropriate level. Used Leksell to remove the spinous process, interspinous ligament. Used a high-speed drill to create a laminotomy , opened the ligamentum flavum with a ball-tip probe. Extended the laminotomy with 2 and 3 Kerrisons . Then gently slid the lead into place. We were slightly cheated to the left, as we expected to be, but covering midline at T9 and T10. The patient was awakened. Intraoperative testing was performed . She had excellent coverage in all the areas of her pain. We elected to leave the lead here. We a nchored it with Injex Bumpy Anchors and 2-0 silk stitch at 2 positions. Copiously irrigated with ove r a liter of gentamicin-infused saline. Meticulous hemostasis was obtained with Floseal and bipolar. We then closed the fascia with 0 Vicryl pop-offs. Created a subcutaneous pocket with Ellis freedman, placed the boot over the lead extension complex. Placed the extension over the lead, protectin g the contact, locked into place. Brought the boot over the lead extension complex, tied in position with 2-0 silk ties at 2 positions. Checked impedances. All impedances were good. Tunneled out to the right-side, as she would like a permanent left-sided implant, and coiled the leads in the subcuta neous pocket. Took a final x-ray to verify lead placement at T9 and T10. Copiously irrigated with o eden a liter of gentamicin-infused saline. Closed the subcutaneous layer with 2-0 Vicryl pop-offs. T he skin was closed with 3-0 running nylon. [place] stitch was placed around the leads as they exited the skin with 2-0 Vicryl. The wound was dressed with Xeroform gauze and a Tegaderm. Patient tolerat ed procedure well. No complications. FLUIDS: As per anesthesia record. URINE OUTPUT: None. DRAINS: None. COMPLICATIONS: None. /[id number]/MODL
[2018-05-04] MEDS: HYDROCODONE/APAP 5/325 TAB PO PRN ×2 (11:19→12:15)
[2018-05-04] MEDS ORDERED: DIAZEPAM 5 MG/ML 1 ML SYR IVP ONE (12:07)
[2018-05-04] MEDS ORDERED: METHOCARBAMOL 750 MG TAB PO PRN (12:10)
[2018-05-04] MEDS ORDERED: DIAZEPAM 5 MG TAB ONE (12:14)
[2018-05-04] MEDS ORDERED: DIAZEPAM 5 MG/ML 1 ML SYR ONE (12:15)
[2018-05-04 14:39] VITALS: BP 165/45
== END 2018-05-04 14:00 | disposition home or self-care (01) ==
LOC: FSGY 06:26
PROVIDERS: ATTEND Neurological Surgery
PROC: 00HV0MZ Insertion of Neurostimulator Lead into Spinal Cord, Open Approach (ICD-10-PCS; principal; 2018-05-04 08:30)
PROC: BR17YZZ Fluoroscopy of Thoracic Spine using Other Contrast (ICD-10-PCS; principal; 2018-05-04 08:30)
DX: G89.4 Chronic pain syndrome (principal); S22.060A Wedge compression fracture of T7-T8 vertebra, initial encounter for closed fracture; M54.15 Radiculopathy, thoracolumbar region
CPT/HCPCS: C1778; C1883; J0690; J1170; J1580; J2250; J2704; J3010; J3360

== ENCOUNTER 2018-05-11 05:40 | Day surgery (SDC) | payer OTHER ==
--- NOTE | 2018-05-10 14:12 | GHP ---
HISTORY OF PRESENT ILLNESS: The patient is an 78-year-old female who underwent a thoracic laminectomy for a spinal cord stimulator paddle lead trial 1 week ago for her chronic leg pain. The patient has been working with [employer] over the past week to determine if the stimulation is improving her day-to-day chronic pain. She is feeling stimulation in the areas of her pain; however, it is not improving her pain significantly. She has thus failed the spinal cord stimulator trial. PAST MEDICAL HISTORY: Chronic pain. PAST SURGICAL HISTORY: Lumbar laminectomy. FAMILY HISTORY: No pertinent neurosurgical family history. SOCIAL HISTORY: The patient has 2 children. Drinks alcohol socially. Denies tobacco use. ALLERGIES: No known drug allergies. HOME MEDICATIONS: Tramadol, potassium chloride, omeprazole, Robaxin, Synthroid , Cortef, [place], Lasix, Florinef, Tricor, and Lipitor. EXAM: GENERAL APPEARANCE: The patient is seen and examined. Appears to be in no apparent distress. Alert and oriented. Mood and affect are appropriate. VITAL SIGNS: Stable. HEENT: Pupils are equal and reactive. Extraocular movements are intact. Facial expression is symmetrical. Tongue is midline with protrusion. Hearing is grossly intact. NEUROLOGIC: Speech is fluent, without any dysarthria. Muscle strength is well preserved in the upper and lower extremities at 5/5, and sensation is intact to light touch. ASSESSMENT AND PLAN: In summary, the patient is an 78-year-old female status post a lumbar laminectomy for a spinal cord stimulator paddle lead trial one week ago. Over the past week, she has been working with the stimulator to determine if it is improving her day-to-day chronic pain. She is feeling stimulation in the areas of her pain; however, it is not lowering her intensity or level of pain. She has failed the spinal cord stimulator trial, and thus today, we will proceed with removal of the paddle lead. The risks, benefits, and procedure were discussed in detail with the patient. The patient has agreed and consented. /[id number]/MODL MTDD
[2018-05-11] MEDS ORDERED: ceFAZolin 2 GM/DEXTROSE 100 ML IV ONE (06:00)
[2018-05-11] MEDS ORDERED: ACETAMINOPHEN 500 MG TAB PO ONE (06:00)
[2018-05-11] MEDS ORDERED: LR 1,000 ML IV ONE (06:01)
[2018-05-11] MEDS ORDERED: NS 1,000 ML IV ONE (06:04)
[2018-05-11] MEDS ORDERED: DEXAMETHASONE 4 MG/ML VIAL ONE (06:48)
[2018-05-11] MEDS ORDERED: fentaNYL 100 MCG/2 ML INJ ONE ×3 (06:48→08:06)
[2018-05-11] MEDS ORDERED: ONDANSETRON 4 MG/2 ML VIAL ONE (06:48)
[2018-05-11] MEDS ORDERED: PROPOFOL 200 MG/20 ML VIAL ONE (06:48)
[2018-05-11] MEDS ORDERED: LIDOCAINE 2% 5 ML SDV ONE (06:48)
[2018-05-11] MEDS ORDERED: SUCCINYLCHOLINE CHLORIDE 200 MG/10 ML SYR IVP ONE (06:48)
[2018-05-11] MEDS ORDERED: PROMETHAZINE HCL 25 MG/ML INJ IVP PRN (06:52)
[2018-05-11] MEDS ORDERED: ONDANSETRON 4 MG/2 ML VIAL IVP PRN (06:52)
[2018-05-11] MEDS ORDERED: HYDROCODONE/APAP 5/325 TAB PO PRN ×2 (06:52→08:56)
[2018-05-11] MEDS ORDERED: fentaNYL 100 MCG/2 ML INJ IVP PRN (06:52)
[2018-05-11] MEDS ORDERED: METOCLOPRAMIDE 10 MG/2 ML VIAL IVP PRN (06:52)
[2018-05-11] MEDS ORDERED: LR 500 ML IV PRN (06:52)
[2018-05-11] MEDS ORDERED: NALOXONE HCL 0.4 MG/ML INJ IVP PRN (06:52)
[2018-05-11] MEDS ORDERED: HYDROmorphONE/DILAUDID 2 MG/ML INJ IVP PRN (06:52)
[2018-05-11] MEDS ORDERED: PHENYLEPHRINE HCL 100 MCG/ML SYR IVP PRN (06:52)
[2018-05-11] MEDS ORDERED: PROPOFOL/EMULSION 500 MG/50 ML BOTTLE IV ONE (07:07)
--- NOTE | 2018-05-11 07:11 | PDANEPAE ---
ANE Past Medical History - Cardiovascular History Hx Hypertension: Yes Hx Arrhythmias: No Hx Chest Pain: No Hx Coronary Artery / Peripheral Vascular Disease: No Hx CHF / Valvular Disease: Yes Hx Palpitations: No Cardiovascular History Comment: MITRAL STENOSIS (patient denies Mitral Stenosis) . HYPERLIPIDEMIA - Pulmonary History Hx COPD: No Hx Asthma/Reactive Airway Disease: No Hx Recent Upper Respiratory Infection: Yes Hx Oxygen in Use at Home: Yes O2 in Use at Home (L/minute): 2 Hx Sleep Apnea: No Sleep Apnea Screening Result - Last Documented: Negative Pulmonary History Comment: PNEUMONIA 2011 - Neurologic History Hx Cerebrovascular Accident: No Hx Seizures: No Hx Dementia: No - Endocrine History Hx Diabetes: No Endocrine History Comment: HYPOTHYROID. Addisons disease - Renal History Hx Renal Disorders: Yes Renal History Comment: DECREASED KIDNEY FUNCTION - Liver History Hx Hepatic Disorders: No - Neurological & Psychiatric Hx Hx Neurological and Psychiatric Disorders: No - Cancer History Hx Cancer: No - Congenital Disorder History Hx Congenital Disorders: No - GI History Hx Gastrointestinal Disorders: Yes Gastrointestinal History Comment: PREV SIGMOID RESECTION, COLOSTOMY - Other Health History Other Health History: Addidons diseaase - Chronic Pain History Chronic Pain: Yes (LOWER BACK,DAMION SCIATICA) - Surgical History Prior Surgeries: STAGE 1 SPINAL CORD STIMULATOR 05/04/18. exp lap with sigmoid resection and colectomy, colostomy,POST COLOSTOMY TAKEDOWN. left tka with richelle 09/16/15. MARJORIE REMOVAL FROM LEFT LEG 07/2015. Broken ankle and fibia 2011 ANE Review of Systems Review of Systems: - Exercise capacity METS (RN): 2 METS ANE Patient History - Allergies Allergies/Adverse Reactions: No Known Allergies Allergy (Verified 05/03/18 18:13) - Home Medications Home Medications: Fenofibrate [Tricor] DAILY 11/04/16 [Last Taken 05/04/18] Fludrocortisone Acetate [Florinef] DAILY 11/04/16 [Last Taken 05/04/18] Hydrocortisone [Cortef 10 mg (*)] BID 11/04/16 [Last Taken 05/04/18] Levothyroxine [Synthroid 100 mcg (*)] DAILY 11/04/16 [Last Taken 05/04/18] Omeprazole DAILY 11/04/16 [Last Taken 05/04/18] Atorvastatin Calcium [Lipitor 10 mg (*)] DAILY 02/18/17 [Last Taken 05/04/18] Furosemide [Lasix 40 MG (*)] DAILY 02/18/17 [Last Taken 05/04/18] Potassium Cl [Klor-Con 20 meq (*)] HS 02/18/17 [Last Taken 05/03/18] traMADol [Ultram 50 mg (*)] TID 02/18/17 [Last Taken 05/04/18] Levoxyl DAILY 05/03/18 [Last Taken 05/04/18] - NPO status NPO Since - Liquids (Date): 05/10/18 NPO Since - Liquids (Time): 21:30 NPO Since - Solids (Date): 05/10/18 NPO Since - Solids (Time): 18:00 - Smoking Hx Smoking Status: Never smoked - Family Anes Hx Family Hx Anesthesia Complications: none ANE Labs/Vital Signs - Vital Signs Blood Pressure: 147/96 Heart Rate: 79 Respiratory Rate: 18 O2 Sat (%): 95 Height: 167.64 cm Weight: 64.864 kg ANE Physical Exam - Airway Neck exam: FROM Mallampati Score: Class 2 Mouth exam: normal dental/mouth exam - Pulmonary Pulmonary: no respiratory distress, no rales or rhonchi, clear to auscultation - Cardiovascular Cardiovascular: regular rate and rhythym, no murmur, rub, or gallop - ASA Status ASA Status: III
[2018-05-11] MEDS ORDERED: LIDOCAINE 1% 300 MG/30 ML SDV ONE (07:21)
[2018-05-11] MEDS ORDERED: CHLORHEXIDINE GLUC HIBICLENS 118 ML BTL TP ONE (07:21)
[2018-05-11] MEDS ORDERED: BUPIVACAINE/EPI 0.25% 30 ML SDV ONE (07:22)
[2018-05-11] MEDS ORDERED: GENTAMICIN SULFATE 80 MG/2 ML VIAL ONE (07:22)
--- NOTE | 2018-05-11 08:08 | POSTOPPROG ---
Post Op Note Date of Operation: 05/11/18 Surgeon: Marie Rendon [place] Sewer: Diana Kelley PA-C Anesthesia: IV Sedation, Local (Specify) Pre-op Diagnosis: Chronic pain Post-op Diagnosis: Chronic pain Procedure: Removal of SCS paddle lead Inf/Abcess present in the surg proc area at time of surgery?: No Plan Plan: 78 yo female s/p removal of SCS paddle lead - neuro checks - pain control - advance diet as tolerated - dc home Exam Awake. Alert Following commands
[2018-05-11] MEDS ORDERED: HYDROCODONE/APAP 5/325 TAB ONE (08:23)
--- NOTE | 2018-05-11 08:47 | GOP ---
DATE OF OPERATION: 05/11/2018 SURGEON: Marie Rendon DO NEUROSURGEON: Marie Rendon D.O. [employer] DIRECTOR: KYLAH Flannery. PREOPERATIVE DIAGNOSIS: 1. Chronic pain syndrome. 2. Failed back syndrome. 3. Failed spinal cord stimulator paddle lead trial. POSTOPERATIVE DIAGNOSIS: 1. Chronic pain syndrome. 2. Failed back syndrome. 3. Failed spinal cord stimulator paddle lead trial. PROCEDURE PERFORMED: Removal of spinal cord stimulator paddle lead. FINDINGS: SPECIMENS: None. ESTIMATED BLOOD LOSS: 2 mL. INDICATIONS: This is an 78-year-old female who had a thoracic laminectomy 7 days ago for spinal cord stimulator paddle lead for trial. She has a failed trial with pain that is unchanged from preoperat yesenia without distracting postoperative pain. She elected to have the paddle removed as it is a failed trial. DESCRIPTION OF PROCEDURE: She was identified, consented. Sites were marked. Brought to the operati ng room, anesthetized under local with MAC. Rolled onto the OR bed with a Jeffrey frame. All pressur e points were appropriately padded. Sutures were removed and incision was prepped and draped in the usual sterile fashion. Incision was anesthetized with 0.25% Marcaine with epinephrine. Incision was made with a 10 blade. Weitlaner was brought in and the fascial sutures were cut. The stay suture w as cut for the lead, and the lead was slid out of the space. We copiously irrigated with over a lite r of gentamicin-infused saline. Closed the fascia with 0 Vicryl pop-offs, subcutaneous layer with 2- 0 Vicryl pop-offs, cutaneous layer with 3-0 Vicryl pop-offs. The skin was closed with 4-0 running Mo nocryl, dressed with Xeroform gauze, and a Tegaderm. Patient tolerated procedure well. No complicat ions. FLUIDS: 300 mL crystalloid. URINE OUTPUT: None. DRAINS: None. COMPLICATIONS: None. /[id number]/MODL
[2018-05-11] MEDS ORDERED: ONDANSETRON DISINTEGRATING 4 MG TAB PO PRN (08:56)
[2018-05-11 09:13] VITALS: BP 148/60
--- NOTE | 2018-05-11 09:52 | POSTANESTH ---
Post Anesthetic Evaluation Cardiovascular Status: Normal, Stable Respiratory Status: Normal, Stable Level of Consciousness/Mental Status: Can Participate in Eval Pain Control: Inadeq, Add Tx Required Nausea/Vomiting Control: Adequate, Prn Tx Ordered Complications Possibly Related to Anesthesia: None Noted
== END 2018-05-11 09:15 | disposition home or self-care (01) ==
LOC: FSGY 05:40
PROVIDERS: ATTEND Neurological Surgery
PROC: 00PV0MZ Removal of Neurostimulator Lead from Spinal Cord, Open Approach (ICD-10-PCS; principal; 2018-05-11 07:15)
DX: G89.4 Chronic pain syndrome (principal); M96.1 Postlaminectomy syndrome, not elsewhere classified; M54.15 Radiculopathy, thoracolumbar region; E78.5 Hyperlipidemia, unspecified; E03.9 Hypothyroidism, unspecified; Z90.49 Acquired absence of other specified parts of digestive tract
CPT/HCPCS: J0330; J0690; J1100; J1580; J2405; J2704; J3010

== ENCOUNTER → 2018-05-28 | Outpatient (CLI) | payer OTHER | LOC: FIMAGING 13:22 | PROVIDERS: ATTEND Family Medicine | DX: M79.604 Pain in right leg (principal); M79.89 Other specified soft tissue disorders ==

== ENCOUNTER → 2018-10-26 | Outpatient (CLI) | payer OTHER | LOC: FIMAGING 13:14 ==